=== PATIENT | female | born 1955 | race Caucasian/White ===

== ENCOUNTER 2021-11-10 07:13 | Emergency (ER) | payer OTHER, SELFPAY ==
--- NOTE | ~2021-11-10 | XR_ITS ---
EXAMINATION: XR WRIST, RIGHT CLINICAL INFORMATION: Fall. COMPARISON: None TECHNIQUE: PA, lateral, and oblique views of the right wrist. FINDINGS: There is a nondisplaced fracture distal radius with mild dorsal angulation of distal fragment. No additional fracture seen. There is mild soft tissue swelling around the wrist. XR/XR wrist RT min 3V IMPRESSION: Nondisplaced fracture distal radius with mild dorsal angulation and mild soft tissue swelling
[2021-11-10 07:20] VITALS: BP 123/64; PULSE 76; RESP 18; TEMP 36.7; O2SAT 98; BMI 29.1
--- NOTE | 2021-11-10 08:24 | ED.EXTPRO ---
HPI - Extremity Problem General Chief complaint: Extremity Injury, Upper Stated complaint: fall r arm inj Time Seen by Provider: 11/10/21 07:30 Source: patient Mode of arrival: ambulatory Limitations: no limitations History of Present Illness HPI Narrative: slipped getting out of bed - injury to chin on floor and R wrist - CARLEEN ESTRADA Complaint: joint swelling and joint pain Onset (ago): hour(s) (630am) Pain Consistency: constant Location: right and upper extremity (wrist) Quality: aching and dull Radiation: none Relieving factors: immobilization Exacerbating factors: range of motion and palpation Associated symptoms: other (small cut on chin, no LOC, no headache, bite feels normal no other injuries) Context: other (slipped on floor, no oral AC therapy) Related Data Previous Rx's Medication Instructions Recorded hydrocodone 5 mg-acetaminophen 325 1 tab PO Q6H PRN #12 tab 11/10/21 mg tablet ibuprofen 600 mg tablet 600 mg PO Q6H PRN #30 tab 11/10/21 ondansetron 4 mg disintegrating 4 mg PO Q8H PRN #20 tab 11/10/21 tablet Allergies Allergy/AdvReac Type Severity Reaction Status Date / Time No Known Allergies Allergy Unknown Unverified 03/29/20 14:40 Review of Systems Review of Systems: Constitutional : No Fever, No Chills ENT/Mouth : No Ear Pain, No Hoarseness, No sore throat Eyes: No Eye Pain, No Swelling, No Redness, No Foreign Body Cardiovascular : No Chest Pain, No SOB Respiratory : No Cough, No Dyspnea Gastrointestinal : No Nausea, No Vomiting, No Diarrhea, No abdominal Pain Genitourinary : No Dysuria, No Hematuria Musculoskeletal : positive joint pain, No Myalgias, pos Joint Swelling Skin : pos Skin lacerations, No rash Neuro : No Weakness, No Numbness, No Loss of Consciousness, No Dizziness, No Headache [facility] Past Medical History Attestation statement: The following information was validated with the patient. Medical History HLD (hyperlipidemia) HTN (hypertension) Social History Social History (Updated 11/10/21 @ 09:02 by Namita Peck DO) Patient Tobacco Use Status: Never used Tobacco Advance Directives: Yes Advance Directives Information Provided: Yes Advance Directives on File: No Physical Exam Vital Signs: Vital Signs: Last Vital Signs Temp 98.0 F 11/10/21 07:20 Pulse 76 11/10/21 07:20 Resp 18 11/10/21 07:20 BP 123/64 11/10/21 07:20 Pulse Ox 98 11/10/21 07:20 BMI result Body Mass Index 29.1 Appearance: Alert. Oriented X3. No acute distress. Eyes: Pupils equal, round and reactive to light. ENT: Pharynx normal. superficial 1cm very mild chin laceration - areas well approximated Neck: Normal inspection. Neck supple. CVS: Normal heart rate and rhythm. Pulses normal. Respiratory: No respiratory distress. Breath sounds normal. Abdomen: Soft and nontender. Skin: Skin warm and dry. Normal skin color. Normal skin turgor. Extremities: No lower extremity edema. R wrist swelling noted small ecchymosis no large deformity 2+ radial pulse, BCR in all digits, no elbow pain, SILT intact Neuro: Oriented X 3. No motor deficit. No sensory deficit. MDM - Extremity (Nontraumatic) MDM Narrative Medical decision making narrative: 66 yo female with mechanical fall at home no LOC, no DOAC here with R wrist injury - fracture on xray NV intact will need splint, has chin laceration no LOC GCS 15 doubt ICH - repair of chin laceration Procedures Laceration Laceration 1: Site: face (chin) Size (cm): 1 Description: linear Depth: simple, single layer Pre-repair: wound explored and irrigated extensively (cleaned) Skin layer closed with: other (dermabond) Orthopedic Splinting/Casting Injury #1: Side: right Upper Extremity Injury Location: wrist Upper Extremity Immobilizer: thumb spica Additional Comments: NV intact post splint Discharge Plan Discharge Clinical Impression: Distal radius fracture Qualifiers: Encounter type: initial encounter Fracture type: closed Fracture morphology: other fracture Laterality: right Qualified Code(s): S52.591A - Other fractures of lower end of right radius, initial encounter for closed fracture Chin laceration Qualifiers: Encounter type: initial encounter Qualified Code(s): S01.81XA - Laceration without foreign body of other part of head, initial encounter Patient Disposition: Home, Self-Care Instructions: Laceration (ED), Wrist Fracture in Adults (ED) Additional Instructions: return to ED for any worsening symptoms or concerns splint until seen by orthopedics dermabond will fall off in 5 to 7 days it is okay to shower Prescriptions: New hydrocodone-acetaminophen 5-325 mg tablet 1 tab PO Q6H PRN (Reason: pain) Qty: 12 0RF ibuprofen 600 mg tablet 600 mg PO Q6H PRN (Reason: pain) Qty: 30 0RF ondansetron 4 mg tablet,disintegrating 4 mg PO Q8H PRN (Reason: nausea and vomiting) Qty: 20 0RF Referrals: Renetta Rodriguez PA-C [Physician Policewoman] - 1 week Stand Alone Forms: Work/School Release Interventions: ED Discharge Assessment Last Done: 11/10/21 09:07 Discharge Date/Time: 11/10/21 09:08
== END 2021-11-10 09:08 | disposition home or self-care (01) ==
PROVIDERS: Emergency Provider Emergency Medicine; PCP Pediatrics
DX: S52.591A Other fractures of lower end of right radius, initial encounter for closed fracture (principal); S01.81XA Laceration without foreign body of other part of head, initial encounter; I10 Essential (primary) hypertension; W06.XXXA Fall from bed, initial encounter; Y93.9 Activity, unspecified; Y92.003 Bedroom of unspecified non-institutional (private) residence as the place of occurrence of the external cause; Y99.9 Unspecified external cause status
CPT/HCPCS: 12011; 29125; 73110; 99283; 99284

== ENCOUNTER → 2021-11-13 10:34 | Outpatient (BNVA) | payer OTHER, SELFPAY | PROVIDERS: PCP Pediatrics; Visit Provider Physician Assistant | DX: S52.501A Unspecified fracture of the lower end of right radius, initial encounter for closed fracture (principal); W18.09XA Striking against other object with subsequent fall, initial encounter; Y93.9 Activity, unspecified; Y92.9 Unspecified place or not applicable; Y99.9 Unspecified external cause status | CPT/HCPCS: 29125 ==

== ENCOUNTER 2021-11-14 07:21 | Day surgery (SDC) | payer OTHER, SELFPAY ==
--- NOTE | 2021-11-13 14:43 | P.CONAN_ITS ---
Documented by User: Kasia Schumacher NP 11/13/21 14:44 HPI - Anesthesia Eval Consult details Narrative: 66yo F for Right Radius Distal Fracture ORIF [facility] Active Problems Active Problems: All Active Problems (Updated 11/13/21 @ 11:37 by Renetta Rodriguez PA-C) Distal radius fracture, right (Acute) Past Medical History Medical History (Updated 11/14/21 @ 07:36 by Alexa Leyva RN) HLD (hyperlipidemia) HTN (hypertension) Hx of pheochromocytoma Social History Social History (Updated 11/13/21 @ 10:50 by EUGENIA Ramos) Patient Tobacco Use Status: Never used Tobacco Use of substances other than those prescribed or required for medical reasons: No Are you DNR?: No Advance Directives: No Advance Directives Information Provided: Yes Recently lost weight without trying: No Current occupational status: employed 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, 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 Meds Allergies Allergy/AdvReac Type Severity Reaction Status Date / Time No Known Allergies Allergy Unknown Unverified 11/13/21 10:48 Home Medications Medication Instructions Recorded Confirmed Last Taken Type chlorthalidone 25 mg tablet 12.5 mg PO QAM 11/13/21 Unknown History lisinopril 10 mg tablet 10 mg PO DAILY 11/13/21 11/14/21 History rosuvastatin 10 mg tablet 10 mg PO BEDTIME 11/13/21 Unknown History Exam Exam Date and Time: November 13, 2021 144 Assessment and Plan Assessment Anesthesia Assessment: Chart Reviewed Documented by User: Lopez Garg MD 11/14/21 10:32 [facility] Past Medical History Medical History (Updated 11/14/21 @ 07:36 by Alexa Leyva RN) HLD (hyperlipidemia) HTN (hypertension) Hx of pheochromocytoma Family History Family history of problems with anesthesia: No Surgical History History of Problems with Anesthesia: No Social History Social History (Updated 11/13/21 @ 10:50 by EUGENIA Ramos) Patient Tobacco Use Status: Never used Tobacco Use of substances other than those prescribed or required for medical reasons: No Are you DNR?: No Advance Directives: No Advance Directives Information Provided: Yes Recently lost weight without trying: No Current occupational status: employed 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, 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 Meds Allergies Allergy/AdvReac Type Severity Reaction Status Date / Time No Known Allergies Allergy Unknown Unverified 11/13/21 10:48 Home Medications Medication Instructions Recorded Confirmed Last Taken Type chlorthalidone 25 mg tablet 12.5 mg PO QAM 11/13/21 Unknown History lisinopril 10 mg tablet 10 mg PO DAILY 11/13/21 11/14/21 History rosuvastatin 10 mg tablet 10 mg PO BEDTIME 11/13/21 Unknown History Exam Airway Mallampati Class: III (limited mouth opening due to jaw injury) TM Dist: >3cm Neck ROM: Full Loose/Missing/Broken Teeth: Yes Assessment and Plan Assessment Anesthesia Assessment: Anesthesia Plan Discussed Final Anesthetic Review Family History of Problems with Anesthesia: No History of Problems with Anesthesia: No NPO: Yes ASA Class: II Final Preanesthetic Review: No Changes in Pt Med Stat, Meds/Allgs Chart Reviewed, Consent Obtained/Reviewed and Anes Risks/Benef Reviewed Patient Risk: Low Procedure Risk: Low Anesthetic Plan Anesthetic Plan: GA and Regional Block Disposition: Standard PACU
[2021-11-14] VITALS (7 sets, daily range): BP systolic 103–146; BP diastolic 34–80; PULSE 89–101; RESP 16–18; TEMP 36.1–37.3; O2SAT 93–98; BMI 29.1
--- NOTE | ~2021-11-14 | FL_ITS ---
EXAMINATION: XR FLUOROSCOPY WITH IMAGES CLINICAL INFORMATION: Right distal radius fracture, status post ORIF. COMPARISON: 11/10/2021 right wrist radiographs. TECHNIQUE: Fluoroscopy time: 69 seconds DAP: [id number] mGycm2 Images: 4 FL/FL guidance in OR FINDINGS/IMPRESSION: Status post distal radius ORIF showing good anatomic alignment and no evidence for hardware malfunction. The distal ulna is intact. There is mild soft tissue swelling. Please refer to the procedure report for more detailed findings.
[2021-11-14] MEDS: Lactated Ringers 1,000 ML 100 ML IVCONT (08:04)
--- NOTE | 2021-11-14 08:44 | MHC.SHP ---
Pre-Procedural Eval Section A Date of Service: 11/14/21 The patient is an INPATIENT: No Changes since office visit: No Cold of Flu in the past 2 weeks, No New Medical Problems, No Changes in Medication and No Patient answered all questions The History & Physical has been completed within 30 days and I have reviewed it.: Yes Section B Chief Complaint: Right distal radius fracture Allergies: Allergies Allergy/AdvReac Type Severity Reaction Status Date / Time No Known Allergies Allergy Unknown Unverified 11/13/21 10:48 Plan I have reviewed the history and physical and performed a pertinent physical examination on my patient. No changes have occurred unless specified.
--- NOTE | 2021-11-14 08:44 | W.PM.OPN ---
Operative Note Operative Note Date of Service: 11/14/21 Narrative: Operative Note Narrative: Preop diagnosis: 1. Right Distal radius fracture Postop diagnosis: Same Procedure: 1. Right Distal radius fracture open reduction internal fixation Surgeon: Lidia Heredia MD Anesthesia: Mac plus regional block Findings: Right extra-articular distal radius fracture Implants: A 3 hole Accu Med volar locking plate, with 4x2.3 mm locking pegs/screws, and 3 3.5 mm cortical screws Tourniquet time: 70 minutes EBL: 5.0 ml Specimen: None Drains: None Complications: None Disposition: Brought to the recovery room in stable condition Plan: the glove on the tip of my right thumb was noted to have torn during the procedure. For this reason I am sending her out on oral Keflex and bring her in for wound check next week. Follow-up next week for wound check, and then at 2 weeks postop to for postop radiographs and suture removal. The patient will be placed in either a short-arm cast or a volar wrist splint. Encouraged no lifting of anything heavier than a cell phone. Please encourage active and passive range of motion of the digits. Follow-up at 4-5 weeks postop for repeat radiographs. Indications: The patient is a 66 year old woman with a right distal radius fracture . The risks and benefits of operative treatment, including but not limited to risk of damage to blood vessels, nerves, tendons, infection, recurrence, persistent pain or numbness, incomplete resolution of preoperative symptoms, or need for further surgery were discussed with the patient and they wished to proceed with surgery. Procedure: Once consent was obtained patient was brought back to the operating suite and placed in the operating table in a supine position. A regional block was performed by the anesthesia team. Perioperative antibiotics and anesthesia was administered by the anesthesia team. A tourniquet was applied to the proximal aspect of the right upper extremity and the limb was prepped and draped in a standard surgical fashion. The limb was elevated exsanguinated with Esmarch bandage and the tourniquet inflated to 250 mm of mercury for a total tourniquet time of 70 minutes. The FluoroScan was used throughout the case to assess our reduction, and facilitate implant placement. A gentle closed reduction was 1st performed on the patient's right distal radius fracture. Was assessed radiographically before proceeding with the reduction internal fixation. I then made an 8 cm longitudinal incision over the distal aspect of the flexor carpi radialis tendon. The incision was made through the skin to the subcutaneous tissue using a 15. Blade. Then carefully dissected down to flexor carpi radialis tendon she tenotomy scissors. The FCR tendon sheath was then incised longitudinally using tenotomy scissors under direct visualization. The FCR tendon was then retracted ulnarly. I then made a longitudinal incision in the volar forearm fascia through the floor of FCR tendon sheath using tenotomy scissors under direct visualization. I identified the interval between the radial artery and the flexor tendons. This interval was developed further with my index finger, releasing some of the muscular fibers of the flexor pollicis longus. A dull weatlander retractor was then placed. I then created an ulnarly based flap of the pronator quadratus by releasing the radial and distal edges using a 15. Blade. A [place] Leon elevator was used to elevate the pronator quadratus from the volar surface of the distal radius. This then revealed to us our distal radius fracture. An open reduction was then performed on our distal radius fracture. I then placed a short narrow 3 hole Accu Med volar locking plate on the volar surface of the distal radius. I placed a single K-wire through the distal aspect of the plate and into the distal radius. This was assessed using fluoroscopic images. I was satisfied with the placement of our plate. I then placed 4x 2.3 mm locking screws/pegs in the distal aspect of the plate and distal radius by 1st drilling bicortically with a 1.8 mm drill bit, measuring with a depth gauge, and placing the appropriate length locking screws/pegs. The placement of our plate and screws was then assessed again using fluoroscopic images. The once satisfied with the placement of the volar locking plate and screws on the distal aspect of the distal radius, the plate was then reduced to the shaft of the radius. I then placed 3 3.5 mm cortical screws to the proximal aspect of the plate and into the shaft of the radius. This was done by 1st drilling bicortically with a 2.8 mm drill bit, measuring with a depth gauge, and placing the appropriate length screw. When fluoroscopic images were again taken, I noted that the distal aspect of the plate was elevated off of the distal volar portion of the radius by few mm. I removed the 3 cortical screws and 3 of the distal locking pegs, reduced the plate back down to the distal fragment and tightened 2 distal Locking pegs. I noted that without much force the radial aspect of the plate tended to again lift off of the distal radius. I made the decision to remove the 2 remaining screws, and reposition the plate. The plate was repositioned slightly ulnarly. I placed a single K-wire through the distal aspect of the plate and into the distal radius.? This was assessed using fluoroscopic images.? I was satisfied with the placement of our plate.? I then placed 4x? ?2.3 mm locking screws/pegs in the distal aspect of the plate and distal radius by 1st drilling bicortically with a 1.8 mm drill bit, measuring with a depth gauge, and placing the appropriate length locking screws/pegs.? The placement of our plate and screws was then assessed again using fluoroscopic images.? The once satisfied with the placement of the volar locking plate and screws on the distal aspect of the distal radius, the plate was then reduced to the shaft of the radius.? I then placed 3? ?3.5 mm cortical screws to the proximal aspect of the plate and into the shaft of the radius.? Interestingly, the 2 more distal holes that were already drilled for the 3.5 mm screws were utilized as they lined up perfectly with the plate. We did drill a new hole for the most proximal screw hole. Fluoroscopic images were then obtained. I was very satisfied with our reduction, the position of the plate and position of all implants. During placement of the 3.5 mm cortical screws it was appreciated that the glove at the tip of my right thumb had torn. The glove was replaced and we also replaced the drill that I was using. The wound was copiously irrigated with normal saline.. Final radiographs were then obtained. The DRUJ was assessed and found to be stable on exam. I was satisfied with our reduction and placement of all implants. At this point the wound was copiously irrigated with normal saline. The pronator quadratus was reduced back over the volar locking plate using some 3-0 Vicryl suture material. The tourniquet was then deflated and hemostasis was obtained with a brief period of local pressure and bipolar monopolar electrocautery. The subcutaneous layer was then reapproximated using some 4-0 Vicryl suture, and the skin edges were reapproximated using some 5 0 Prolene suture. The wound was then infiltrated with some 0.5% plain Marcaine for postop pain control. A sterile dressing and a short dorsal splint allowing for active flexion and extension of the digits was applied. The patient appears to have tolerated the procedure well and with no complications. All digits were well vascularized conclusion of the case.
== END 2021-11-14 12:39 ==
PROVIDERS: PCP Pediatrics; Visit Provider Orthopaedic Surgery
PROC: (CPT 25607; principal; 2021-11-14 09:00)
DX: S52.551A Other extraarticular fracture of lower end of right radius, initial encounter for closed fracture (principal); W01.0XXA Fall on same level from slipping, tripping and stumbling without subsequent striking against object, initial encounter; Y93.01 Activity, walking, marching and hiking; Y92.9 Unspecified place or not applicable; Y99.8 Other external cause status; E78.5 Hyperlipidemia, unspecified; I10 Essential (primary) hypertension; Z79.899 Other long term (current) drug therapy; Z98.890 Other specified postprocedural states; Z86.03 Personal history of neoplasm of uncertain behavior
CPT/HCPCS: 25607; C1713; C1769; J0690; J1100; J2250; J2370; J2405; J2795; J3010

== ENCOUNTER → 2021-11-20 09:17 | Outpatient (BNVA) | payer OTHER, SELFPAY | PROVIDERS: PCP Pediatrics; Visit Provider Orthopaedic Surgery | DX: Z13.89 Encounter for screening for other disorder (principal) ==

== ENCOUNTER 2021-11-27 08:22 | Outpatient (REF) | payer OTHER, SELFPAY ==
--- NOTE | ~2021-11-27 | XR_ITS ---
EXAMINATION: XR WRIST, RIGHT CLINICAL INFORMATION: Fracture COMPARISON: Previous x-ray November 10 and 2021 TECHNIQUE: PA, lateral, and oblique views of the right wrist. FINDINGS: There is ORIF of the right distal radius fracture with plate and screws. This appears unchanged. Fracture line is still seen. No other fracture is seen. The carpal bones are normal. There is overlying soft tissue swelling. XR/XR wrist RT min 3V IMPRESSION: ORIF of right distal radius fracture.
== END 2021-11-27 08:23 | disposition home or self-care (01) ==
LOC: HO.HOSX 08:22
PROVIDERS: Visit Provider Orthopaedic Surgery
DX: M25.531 Pain in right wrist (principal)
CPT/HCPCS: 73110

== ENCOUNTER 2021-12-25 08:22 | Outpatient (REF) | payer OTHER, SELFPAY ==
--- NOTE | ~2021-12-25 | XR_ITS ---
EXAMINATION: XR WRIST, RIGHT CLINICAL INFORMATION: Reduction internal fixation distal radial fracture. Follow-up. COMPARISON: Radiographs right wrist 11/27/2021, 11/10/2021 TECHNIQUE: Right wrist is imaged in 3 views. FINDINGS: Distal radial fracture is reduced with volar side plate and multiple screws. Hardware is intact. Fracture fragments are in near-anatomic alignment. Fracture line is still visible. No destructive process or osteolysis. No dislocation. XR/XR wrist RT min 3V IMPRESSION: -Status post reduction internal fixation distal radial fracture. Hardware intact. -Fracture line still visible. No osteolysis or destructive process.
== END 2021-12-25 08:23 | disposition home or self-care (01) ==
LOC: HO.HOSX 08:22
PROVIDERS: Visit Provider Orthopaedic Surgery
DX: M25.531 Pain in right wrist (principal)
CPT/HCPCS: 73110

== ENCOUNTER 2023-01-28 08:18 | Outpatient (AMB) | payer OTHER, SELFPAY ==
--- NOTE | 2023-01-28 08:32 | MHC.OFFWIV ---
Intake Vital Signs 01/28/23 08:35 BP 118/68 Blood Pressure Location Lt brachial Position Sitting Pulse 105 H Pulse Source Pulse Oximeter Temp 98.4 F Temp Source Temporal Artery Scan Pulse Oximetry (%) 95 Oxygen Delivery Method Room Air Intake Visit Reasons: EP UTI? (ursula) Intake Note: Patient here for possible UTI, she did have one last one and is unsure if it ever truly went away. Frequent urination, appears cloudy. denies burning when urinating. Patient Tobacco Use Status: Never used Tobacco Allergies No Known Allergies Allergy (Unknown, Verified 01/28/23 08:34) Do you need a note to return to daycare/school/sports/work: No HPI EP UTI? (ursula) HPI Details 67-year-old female patient presents today with symptoms of urinary tract infection. She had similar symptoms about 1 month ago, and was seen in the clinic on 12/31 for UTI. She was started on Bactrim. She feels symptoms were improved for a couple of weeks, and then started to recur. She reports urinary frequency, urgency, cloudiness of the urine. She denies any fever, chills, or back pain. 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 Review of Systems Const All systems reviewed & are unremarkable except as noted in HPI and below Physical Exam Vital Signs: Last Vital Signs Temp 98.4 F 01/28/23 08:35 Pulse 105 H 01/28/23 08:35 BP 118/68 01/28/23 08:35 Pulse Ox 95 01/28/23 08:35 Oxygen Delivery Method Room Air 01/28/23 08:35 Const General: cooperative, healthy appearing, comfortable and no acute distress Resp Effort & Inspection: normal respiratory effort and able to speak in complete sentences Auscultation: clear to auscultation bilaterally Cardio Jugular venous distension: no JVD Palpation: normal PMI Rate: regular rate Rhythm: regular rhythm General: Yes bladder normal to palpation and Yes no CVA tenderness Bimanual exam- vagina & uterus: bladder normal to palpation Back/Spine/Pelvis Back: no CVA tenderness Skin General skin exam: no rashes or lesions noted Extrem General: Yes no clubbing, cyanosis or edema Psych Appearance: grossly normal Mental Status: mental status grossly normal Speech and movement: Normal speech and movement present Results AMB Urinalysis, Automated UA Leukoctes 500 Lana/uL Last Edit by NOEMI Cortes on 01/28/23 08:45 UA Nitrite Negative Last Edit by Matthias Donaldson CCM on 01/28/23 08:45 UA Urobilinogen 0.2 mg/dL Last Edit by Matthias Donaldson [facility] on 01/28/23 08:45 UA Protein 30 mg/dL Last Edit by Matthias Donaldson [facility] on 01/28/23 08:45 UA pH Last Edit by Matthias Donaldson [facility] on 01/28/23 08:45 UA Blood 5.5 Go/uL Last Edit by Matthias Donaldson CCM on 01/28/23 08:45 UA Specific [place] 1.015 Last Edit by Matthias Donaldson [facility] on 01/28/23 08:45 UA Ketone Negative Last Edit by Matthias Donaldson CCM on 01/28/23 08:45 UA Bilirubin 0 mg/dL Last Edit by Matthias Donaldson [facility] on 01/28/23 08:45 UA Glucose 0 mg/dL Last Edit by Matthias Donaldson [facility] on 01/28/23 08:45 Assessment & Plan Assessment & Plan (1) Urinary tract infection: Code(s): N39.0 - Urinary tract infection, site not specified Qualifiers: Urinary tract infection type: acute cystitis Hematuria presence: with hematuria Qualified Code(s): N30.01 - Acute cystitis with hematuria Plan: Recurrent UTI following treatment about 1 month ago. Will start patient on nitrofurantoin and send urine culture. Will also refill patient's pyridium per her request. Recommended to increase water intake and probiotic/live culture intake Advised to return to the clinic if she does not improve with treatment, or if symptoms such as fever, chills, flank pain developed. She verbalizes understanding and agrees to plan. Orders: Orders AMB Urinalysis Automated Today Z13.9 - Encounter for screening, unspecified Urine Culture Today N39.0 - Urinary tract infection, site not specified Medications: New nitrofurantoin macrocrystal must administer with a meal/food 100 mg PO BID 10 caps 0RF 5 days N39.0 - Urinary tract infection, site not specified Coding Level of Care Code Est Pt Level 3 (00934) Diagnoses Urinary tract infection N30.01 Urinary tract infection type: acute cystitis Hematuria presence: with hematuria
[2023-01-28 08:35] VITALS: BP 118/68; PULSE 105; TEMP 36.9; O2SAT 95
== END 2023-01-28 08:57 | disposition home or self-care (01) ==
PROVIDERS: PCP Pediatrics; Visit Provider Nurse Practitioner Family
DX: N30.01 Acute cystitis with hematuria (principal); R35.0 Frequency of micturition
CPT/HCPCS: 81003; 99213

== ENCOUNTER 2023-01-28 14:04 | Outpatient (REF) | payer OTHER, SELFPAY | END 2023-01-28 14:05 | disposition home or self-care (01) | LOC: HO.HMGCLNP 14:04 | PROVIDERS: Visit Provider Nurse Practitioner Family | DX: N39.0 Urinary tract infection, site not specified (principal) | CPT/HCPCS: 87086; 87088; 87186 ==

== ENCOUNTER 2023-05-07 14:26 | Outpatient (REF) | payer OTHER, SELFPAY ==
--- NOTE | ~2023-05-07 | US_ITS ---
EXAMINATION: US RETROPERITONEAL COMPLETE (RENAL) CLINICAL INFORMATION: Atrophy of kidney. COMPARISON: CT abdomen and pelvis 10/15/2021. Renal ultrasound 04/21/2013 and 01/04/2008. TECHNIQUE: Real-time imaging of the kidneys and bladder. FINDINGS: RIGHT KIDNEY: 12.6 x 7.4 x 8.7 cm (SAG x AP x TRV). The kidney is normal in size, contour, and echogenicity. Renal cortical thickness is normal. No renal calculi or focal parenchymal lesions. There is marked hydronephrosis. LEFT KIDNEY: 12.6 x 7.0 x 4.7 cm (SAG x AP x TRV). The kidney is normal in size, contour, and echogenicity. Renal cortical thickness is normal. No focal parenchymal lesions. At the ureteropelvic junction, a 1.1 cm calculus is seen. There is moderate hydronephrosis. BLADDER: Well distended and normal. Left ureteral jet is demonstrated; right is not. Prevoid bladder volume is 269 mL. Postvoid bladder volume is 10 mL. US/US retroperitoneal comp IMPRESSION: 1. There is marked right hydronephrosis. No right ureteric jet is seen. 2. There is moderate left hydronephrosis. A 1.1 cm calculus is seen at the left ureteropelvic junction.
== END 2023-05-07 14:27 | disposition home or self-care (01) ==
LOC: HO.US 14:26
PROVIDERS: Visit Provider Physician Assistant Medical
DX: Q62.11 Congenital occlusion of ureteropelvic junction (principal); N26.1 Atrophy of kidney (terminal)
CPT/HCPCS: 76770

== ENCOUNTER 2023-06-19 15:32 | Inpatient (IN) | payer OTHER, SELFPAY ==
[2023-06-19] VITALS (10 sets, daily range): BP systolic 94–137; BP diastolic 51–75; PULSE 92–144; RESP 16–22; TEMP 36.9–38.8; O2SAT 91–95; BMI 32.8
--- NOTE | ~2023-06-19 | XR_ITS ---
EXAMINATION: XR CHEST CLINICAL INFORMATION: Fever COMPARISON: None available. TECHNIQUE: Frontal view of the chest was obtained. FINDINGS: No significant abnormality is noted involving the heart, lungs, mediastinum, bony thorax or soft tissues. XR/XR chest 1V IMPRESSION: Unremarkable examination.
--- NOTE | ~2023-06-19 | CT_ITS ---
EXAMINATION: CT HEAD WITHOUT CONTRAST (STROKE PROTOCOL) CLINICAL INFORMATION: Expressive aphasia. COMPARISON: No relevant prior imaging. TECHNIQUE: Contiguous axial imaging was performed from the skull base to vertex without intravenous administration of contrast. This CT examination was performed using dose optimization techniques as appropriate, variously including the following: *Automated exposure control *Adjustment of mA and/or kV according to patient size (this includes techniques or standardized protocols for targeted exams where dose is matched to indication/reason for exam; i.e. extremities or head) *Use of iterative reconstruction technique DLP: 593 mGy-cm FINDINGS: There is no acute intracranial hemorrhage or abnormal extra-axial collection. No intracranial mass effect or midline shift. Lateral and third ventricles are normal. No hydrocephalus. English-white matter differentiation is preserved and there is no evidence of acute territorial infarct. The calvarium and skull base are intact. Mastoid air cells and middle ear cavities are well aerated. No active paranasal sinus disease. Globes and orbits are grossly symmetric. CT/CT head for stroke IMPRESSION: Normal CT scan of the head.
--- NOTE | ~2023-06-19 | CT_ITS ---
EXAMINATION: CT ABDOMEN AND PELVIS WITHOUT CONTRAST CLINICAL INFORMATION: Stent removal yesterday COMPARISON: Previous renal ultrasound April 2023 TECHNIQUE: Multidetector volumetric imaging was performed from the superior aspect of the liver through the pubic symphysis. Sagittal and coronal reformatted images were obtained on the technologist's workstation. This CT examination was performed using dose optimization techniques as appropriate, variously including the following: *Automated exposure control *Adjustment of mA and/or kV according to patient size (this includes techniques or standardized protocols for targeted exams where dose is matched to indication/reason for exam; i.e. extremities or head) *Use of iterative reconstruction technique DLP: 896 mGy-cm FINDINGS: Exam is limited due to motion artifact. LUNG BASES: The visualized lung bases are unremarkable. LIVER, GALLBLADDER, AND BILIARY TREE: The liver is normal in size, shape, and attenuation. No focal hepatic lesion or biliary ductal dilatation is present. The gallbladder is unremarkable with no evidence of radiopaque gallstones, gallbladder wall thickening, or obvious pericholecystic inflammatory changes. PANCREAS: Unremarkable. SPLEEN: Unremarkable. ADRENAL GLANDS: The left adrenal gland has been removed. Right adrenal gland is normal. KIDNEYS AND URETERS: There is severe right hydronephrosis. There is marked right renal cortical thinning suggestive of long-standing obstruction. This is similar to previous ultrasound. There is moderate left hydronephrosis. The left ureter does not appear dilated. There is a small amount of fat stranding surrounding the left renal pelvis and ureter. No stone is seen. BLADDER: Not optimally distended. GASTROINTESTINAL TRACT: Diverticulosis of the colon. The small and large bowel are otherwise unremarkable. The appendix is unremarkable. ABDOMINAL WALL: No significant hernia is appreciated. LYMPH NODES: Normal. VASCULAR: Atherosclerotic disease. No aneurysm. PELVIC VISCERA: Unremarkable. OSSEOUS STRUCTURES: Degenerative changes of the spine. CT/CT abdomen pelvis wo IV con IMPRESSION: Limited exam due to motion artifact. Severe right hydronephrosis and right renal cortical thinning suggestive of long-standing obstruction. This is similar to April 2023 ultrasound. Moderate left hydronephrosis. There is fat stranding seen surrounding the left renal pelvis and ureter. No stone seen. Severe diverticulosis of the colon. Fleischner guidelines were followed.
--- NOTE | ~2023-06-19 | CT_ITS ---
EXAMINATION: CT angio head neck stroke CLINICAL INFORMATION: Expressive aphasia. COMPARISON: CT scan of the head 06/19/2023. TECHNIQUE: Rail Signal Mechanic images were obtained. A CT angiogram of the head and neck was performed in the arterial phase after the intravenous administration of 50 mL Omnipaque 350. Pre and delayed postcontrast images of the head were also obtained. 3D images were processed on an independent workstation under concurrent supervision. Arterial stenoses are measured in accordance with NASCET criteria or similar method if applicable. This CT examination was performed using dose optimization techniques as appropriate, including one or more of the following: Automated exposure control, iterative reconstruction, and adjustment of technique factors (mA and/or kVp) according to patient size (this includes techniques or standardized protocols for targeted exams where dose is matched to indication/reason for exam). Fleischner Society criteria for the followup of incidental pulmonary nodules was implemented if appropriate. Total exam dose-length product 1459 mGy-cm FINDINGS: Head: Delayed postcontrast images reveal no abnormal intracranial mass or enhancement. There is no intracranial mass effect or midline shift. Lateral and third ventricles are normal. No hydrocephalus. English-white matter differentiation is preserved and there is no evidence of acute territorial infarct. The calvarium and skull base are intact. Mastoid air cells and middle ear cavities are well aerated. No active paranasal sinus disease. Of note there is an old healed fracture of the right mandibular condyle which is anteriorly subluxed. CT angiogram neck: Patient motion degrades image quality on this component of the examination. The diagnostic accuracy is therefore limited. Scattered atheromatous calcification involves the aortic arch apex. Origins of the major aortic branches are patent. Common carotid arteries are patent. Partially calcified atheromatous plaque involves both carotid bifurcations. No stenosis of the extracranial internal carotid arteries. The cervical segments of the vertebral arteries are patent. CT angiogram head: There is a shallow 1.4 mm contour abnormality at the origin of the left posterior communicating artery that may represent a small aneurysm or vascular infundibulum. This finding is best visualized on sagittal MIP image 61 of 146 series 9. Intracranial internal carotid arteries are otherwise normal. The intradural vertebral artery segments and basilar artery are normal. Anterior, middle, and posterior cerebral artery complexes are normal. No intracranial large vessel occlusion. The timing of the contrast injection provides adequate opacification of the dural venous sinuses which are patent. Other: Soft tissues of the neck including the thyroid gland are normal. No pathologically enlarged cervical lymph nodes. Lung apices are clear. CT/CT angio head neck stroke IMPRESSION: Patient motion degrades image quality on this component of the examination. The diagnostic accuracy is therefore limited. Partially calcified atheromatous plaque involves both carotid bifurcations. No stenosis of the cervical carotid or vertebral arteries. No intracranial large vessel occlusion. There is a shallow 1.4 mm contour abnormality at the origin of the left posterior communicating artery that may represent a small aneurysm or vascular infundibulum. No evidence of acute territorial infarct or hemorrhage. No abnormal intracranial mass or enhancement. This critical result was discussed with Sera Smith at 4:23 PM on 06/19/2023 and it was ascertained that the content and urgency of the report was understood at the time of direct communication.
--- NOTE | 2023-06-19 15:50 | ECG_ITS ---
Test Reason : STROKE SYMPTOMS Blood Pressure : / mmHG Vent. Rate : 126 BPM Atrial Rate : 126 BPM P-R Int : 162 ms QRS Dur : 078 ms QT Int : 304 ms P-R-T Axes : 025 041 014 degrees QTc Int : 440 ms Sinus tachycardia Cannot rule out Inferior infarct , age undetermined Abnormal ECG When compared with ECG of 18-OCT-2006 14:53, T wave inversion now evident in Inferior leads Referred By: Quintin Cabezas Electronically Signed By:ELVIN MERCADO
--- NOTE | 2023-06-19 15:51 | ED.GENADULT ---
HPI - General Adult General Chief complaint: Stroke Stated complaint: unstable Time Seen by Provider: 06/19/23 15:56 History of Present Illness HPI narrative: 67 y/o F patient; PMH HLD, left ureteral stent removal 06/18/2023; [facility] report of [facility]asia and ataxia that began at approx 3pm. The patient left work at 3pm and co-workers deny noticing any abnormalities. [facility] the patient was noticed to have difficulty with speech and difficulty with ambulation. The patient herself reports she feels unwell but cannot provide further details. She otherwise denies: pain, fever or chills, nausea/vomiting, abdominal pain, chest pain, SOB, cough/congestion. Of note the patient was seen immediately by triage provider. She was noticed to have an appropriate glucose. She had tachycardia and fever to 100.9F. She was activated as a code stroke due to her ataxia and reported aphasia. Patient's son is at bedside. Urologist: Dr. Martell ([place]) Related Data Home Medications Medication Instructions Recorded Confirmed chlorthalidone 25 mg tablet 12.5 mg PO QAM 11/13/21 12/31/22 lisinopril 10 mg tablet 10 mg PO DAILY 11/13/21 12/31/22 rosuvastatin 10 mg tablet 10 mg PO BEDTIME 11/13/21 12/31/22 Previous Rx's Medication Instructions Recorded nitrofurantoin macrocrystal 100 mg 100 mg PO BID 5 days #10 caps 01/28/23 capsule Allergies Allergy/AdvReac Type Severity Reaction Status Date / Time No Known Allergies Allergy Unknown Verified 01/28/23 08:34 Review of Systems Review of Systems: Yes all other systems are reviewed and are negative Neurologic: Denies Sensory deficit (Neuro) [facility] Past Medical History Attestation statement: The following information was validated with the patient. 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 Const General: cooperative; No diaphoretic Orientation/consciousness: patient oriented x3 HENMT Head: Yes normal to inspection and Yes atraumatic Eyes General: appearance normal, both eyes and all related structures Pupils: Equal, round and reactive pupils present EOM: EOMs intact bilaterally Neck Neck: Yes normal visual inspection, Yes full ROM and Yes supple Chest Chest palpation & inspection: normal inspection of the chest and normal palpation of entire chest wall Resp Effort & Inspection: normal respiratory effort, able to speak in complete sentences, no cough and no respiratory distress Auscultation: clear to auscultation bilaterally Cardio Rate: tachycardic Rhythm: regular rhythm Peripheral pulses: Peripheral pulses 2+ throughout GI Inspection: Yes normal to inspection Palpation (GI): Soft to palpation, not firm, nontender, no guarding and not rigid Auscultation: normal bowel sounds Neuro General: patient oriented x3 Cranial nerves: Yes CN's II-XII intact bilaterally and Yes Equal, round and reactive pupils present Cognition (Neuro): normal cognition Speech: No Expressive aphasia present and No Receptive aphasia present Gait exam (Neuro): Ataxic gait present Motor exam (neuro): 5/5 motor strength present throughout Sensory Exam: No Sensory deficit (Neuro) NIH Stroke Scale Level of Consciousness: Alert Level of Consciousness Questions: Answers both questions correctly Level of Consciousness Commands: Performs both tasks correctly Best Gaze: Normal Visual: No visual loss Facial Palsy: Normal Motor Arm (Right): No drift Motor Arm (Left): No drift Motor Leg (Right): No drift Motor Leg (Left): No drift Limb Ataxia: Absent (Gait ataxia, without focal limb ataxia ) Sensory: Normal Best Language: No aphasia Dysarthia: Normal Extinction and Inattention: No abnormality Score: 0 Course Course Course Narrative: 67-year-old female with history of hyperlipidemia presents for evaluation of being disoriented. Patient went to right this morning her usual self, she reports feeling well. She went to the hairdresser about 45 minutes prior to arrival. The hairdresser call the patient's sister because the patient was seeming ?altered. ? The patient has no dysarthria, facial asymmetry or weakness. She does have expressive aphasia. She was brought straight back to room 22. Patient had a left ureteral stent removed yesterday Reevaluation(s) Reevaluation #1: Patient is febrile and tachycardic. NIHSS 0, activated by triage provider as code stroke. Taken to CT for CT Head/CT ELVO. Added CT Abdomen/Pelvis w/o Contrast. As patient is febrile, obtained lactic acid and blood cultures x2. Provided Tylenol 975mg PO. Provided 1L IVF. Time: 16:09 Reevaluation #2: Reviewed labs. Noted leukocytosis 16.5k. EKG with ST 126BPM without ischemic changes. CT Head and ELVO unremarkable for acute abnormalities as discussed with radiology attending. At this time, low suspicion for CVA/TIA. Suspect patient is encephalopathic 2/2 to acute infection meeting sepsis criteria. Blood cultures, lactic acid, UA with culture have been ordered. Antibiotics with Zosyn ordered due to suspected source of infection abdominal versus , dose adjusted for CrCl. Time: 16:46 Reevaluation #3: CT Abdomen/Pelvis with evidence of severe right hydronephrosis and right renal cortical thinning, moderate left hydronephrosis with fat stranding surrounding the left renal pelvis and ureter. CXR unremarkable. Urine with evidence of infection. Urology paged for consult, will follow patient during admission. Plan: Admit to hospitalist Condition: Stable Time: 16:57 Medications Administered Discontinued Medications Generic Name Dose Route Start Last Admin Trade Name Freq PRN Reason Stop Dose Admin Acetaminophen 975 mg 06/19/23 16:09 06/19/23 16:40 Acetaminophen 325 Mg Tablet PO 06/19/23 16:10 975 mg ONCE ONE Administration Sodium Chloride 1,000 mls @ 999 mls/hr 06/19/23 16:15 06/19/23 16:41 Ns IV 06/19/23 17:15 999 mls/hr .Q1H1M DONELL Administration Sodium Chloride 1,000 mls @ 999 mls/hr 06/19/23 16:45 06/19/23 17:19 Ns IV 06/19/23 17:45 999 mls/hr .Q1H1M DONELL Administration Piperacillin Sod/Tazobactam 50 mls @ 100 mls/hr 06/19/23 16:47 06/19/23 17:19 Sod 2.25 gm/ Sodium Chloride IV 06/19/23 17:16 100 mls/hr ONCE ONE Administration Medical Decision Making Lab Data 06/19/23 15:58 06/19/23 15:58 Labs: Lab Results 06/19/23 06/19/23 06/19/23 Range/Units 15:55 15:58 16:39 WBC 16.5 H (4.8-10.8) X10*3/uL RBC 5.08 (4.20-5.50) X10*6/uL Hgb 14.2 (12.0-16.0) g/dl Hct 43.2 (37.0-47.0) % MCV 85.0 (80.0-98.0) fL MCH 28.0 (27.0-33.0) pg MCHC 32.9 (31.0-35.0) g/dl RDW 13.3 (11.0-16.0) % Plt Count 210 (160-400) X10*3/uL MPV 11.1 (9.4-12.3) fL Immature Gran % (Auto) 0.6 H (0.0-0.4) % Neut % (Auto) 84.2 H (45-73) % Lymph % (Auto) 8.4 L (20-40) % [place] % (Auto) 6.3 (2-11) % Eos % (Auto) 0.2 (0-4) % Baso % (Auto) 0.3 (0-2) % Lymph # (Auto) 1.4 (1.2-4.9) X10*3/uL [place] # (Auto) 1.0 (0.1-1.2) X10*3/uL Eos # (Auto) 0.0 (0.0-0.4) X10*3/uL Baso # (Auto) 0.1 (0.0-0.2) X10*3/uL Abs Immat Gran (auto) 0.10 H (0.00-0.03) X10*3/uL Absolute Neuts (auto) 13.9 H (2.0-8.3) x10*3/uL Absolute Nucleated RBC 0.000 (0.0-0.012) X10*3/uL Nucleated RBC % (auto) 0.0 (0.0-0.2) /100WBC Hold Purple Top SEE NOTE PT 11.3 (11.1-13.3) SEC INR 0.9 (0.9-1.1) APTT 29.2 (26.0-36.4) SEC Sodium 141 (135-145) mmol/L Potassium 3.8 (3.3-5.1) mmol/L Chloride 102 (96-108) mmol/L Carbon Dioxide 25 (22-29) mmol/L Anion Gap 18 (12-20) BUN 30 H (9-16) mg/dL Creatinine 2.18 H (0.5-1.4) mg/dL Estim Creat Clear Calc 27.6 Estimated GFR 22 POC Glucose 151 H (60-115) mg/dL Random Glucose 150 H (60-115) mg/dL Lactic Acid 1.3 (0.5-2.0) mmol/L Calcium 9.6 (8.4-10.2) mg/dL Total Bilirubin 0.6 (0.0-1.0) mg/dL AST 18 (5-31) U/L ALT 14 (0-31) U/L Alkaline Phosphatase 88 (39-117) U/L Troponin I High Sens 4.0 (<3.5-17.0) ng/L Total Protein 7.8 (6.5-8.0) g/dL Albumin 4.2 (3.5-5.0) g/dL Lipase 51 (8-78) U/L Hold Yellow Top See Note Urine Color Urine Appearance Urine pH (5.0-9.0) Ur Specific [place] (1.005-1.025) Urine Protein (Neg-Trace) mg/dL Urine Glucose (UA) (Negative) mg/dL Urine Ketones (Negative) mg/dL Urine Blood (Negative) Urine Nitrite (Negative) Ur Leukocyte Esterase (Negative) Urine RBC (0-2) /HPF Urine WBC (0-5) /HPF Ur Squamous Epith Cells (0-2) /HPF Urine Bacteria (None Seen) Hyaline Casts (0-2) /LPF Urine Opiates Screen (Not Detect) Urine Fentanyl Screen (Not Detect) Ur Barbiturates Screen (Not Detect) Ur Phencyclidine Scrn (Not Detect) Ur Amphetamines Screen (Not Detect) U Benzodiazepines Scrn (Not Detect) Urine Cocaine Screen (Not Detect) U Marijuana (THC) Screen (Not Detect) Blood Type O Positive Antibody Screen NEGATIVE 06/19/23 Range/Units 16:50 WBC (4.8-10.8) X10*3/uL RBC (4.20-5.50) X10*6/uL Hgb (12.0-16.0) g/dl Hct (37.0-47.0) % MCV (80.0-98.0) fL MCH (27.0-33.0) pg MCHC (31.0-35.0) g/dl RDW (11.0-16.0) % Plt Count (160-400) X10*3/uL MPV (9.4-12.3) fL Immature Gran % (Auto) (0.0-0.4) % Neut % (Auto) (45-73) % Lymph % (Auto) (20-40) % [place] % (Auto) (2-11) % Eos % (Auto) (0-4) % Baso % (Auto) (0-2) % Lymph # (Auto) (1.2-4.9) X10*3/uL [place] # (Auto) (0.1-1.2) X10*3/uL Eos # (Auto) (0.0-0.4) X10*3/uL Baso # (Auto) (0.0-0.2) X10*3/uL Abs Immat Gran (auto) (0.00-0.03) X10*3/uL Absolute Neuts (auto) (2.0-8.3) x10*3/uL Absolute Nucleated RBC (0.0-0.012) X10*3/uL Nucleated RBC % (auto) (0.0-0.2) /100WBC Hold Purple Top PT (11.1-13.3) SEC INR (0.9-1.1) APTT (26.0-36.4) SEC Sodium (135-145) mmol/L Potassium (3.3-5.1) mmol/L Chloride (96-108) mmol/L Carbon Dioxide (22-29) mmol/L Anion Gap (12-20) BUN (9-16) mg/dL Creatinine (0.5-1.4) mg/dL Estim Creat Clear Calc Estimated GFR POC Glucose (60-115) mg/dL Random Glucose (60-115) mg/dL Lactic Acid (0.5-2.0) mmol/L Calcium (8.4-10.2) mg/dL Total Bilirubin (0.0-1.0) mg/dL AST (5-31) U/L ALT (0-31) U/L Alkaline Phosphatase (39-117) U/L Troponin I High Sens (<3.5-17.0) ng/L Total Protein (6.5-8.0) g/dL Albumin (3.5-5.0) g/dL Lipase (8-78) U/L Hold Yellow Top Urine Color Dark Yellow Urine Appearance Turbid Urine pH 5.5 (5.0-9.0) Ur Specific [place] 1.020 (1.005-1.025) Urine Protein 300 (3+) H (Neg-Trace) mg/dL Urine Glucose (UA) Negative (Negative) mg/dL Urine Ketones Trace (Negative) mg/dL Urine Blood Large (3+) H (Negative) Urine Nitrite Positive H (Negative) Ur Leukocyte Esterase Large (3+) H (Negative) Urine RBC 11-20 H (0-2) /HPF Urine WBC >50 H (0-5) /HPF Ur Squamous Epith Cells 11-20 (0-2) /HPF Urine Bacteria 4+ (None Seen) Hyaline Casts 6-10 (0-2) /LPF Urine Opiates Screen Not Detected (Not Detect) Urine Fentanyl Screen Not Detected (Not Detect) Ur Barbiturates Screen Not Detected (Not Detect) Ur Phencyclidine Scrn Not Detected (Not Detect) Ur Amphetamines Screen Not Detected (Not Detect) U Benzodiazepines Scrn Not Detected (Not Detect) Urine Cocaine Screen Not Detected (Not Detect) U Marijuana (THC) Screen Not Detected (Not Detect) Blood Type Antibody Screen Radiology Impression Discussion of test interpretation with radiology: I discussed test interpretation with the radiologist and I have reviewed the radiologist's reading. Radiologist Impression: EXAMINATION: CT angio head neck stroke CLINICAL INFORMATION: Expressive aphasia. COMPARISON: CT scan of the head 06/19/2023. TECHNIQUE: [facility] images were obtained. A CT angiogram of the head and neck was performed in the arterial phase after the intravenous administration of 50 mL Omnipaque 350. Pre and delayed postcontrast images of the head were also obtained. 3D images were processed on an independent workstation under concurrent supervision. Arterial stenoses are measured in accordance with NASCET criteria or similar method if applicable. This CT examination was performed using dose optimization techniques as appropriate, including one or more of the following: Automated exposure control, iterative reconstruction, and adjustment of technique factors (mA and/or kVp) according to patient size (this includes techniques or standardized protocols for targeted exams where dose is matched to indication/reason for exam). Fleischner Society criteria for the followup of incidental pulmonary nodules was implemented if appropriate. Total exam dose-length product 1459 mGy-cm FINDINGS: Head: Delayed postcontrast images reveal no abnormal intracranial mass or enhancement. There is no intracranial mass effect or midline shift. Lateral and third ventricles are normal. No hydrocephalus. English-white matter differentiation is preserved and there is no evidence of acute territorial infarct. The calvarium and skull base are intact. Mastoid air cells and middle ear cavities are well aerated. No active paranasal sinus disease. Of note there is an old healed fracture of the right mandibular condyle which is anteriorly subluxed. CT angiogram neck: Patient motion degrades image quality on this component of the examination. The diagnostic accuracy is therefore limited. Scattered atheromatous calcification involves the aortic arch apex. Origins of the major aortic branches are patent. Common carotid arteries are patent. Partially calcified atheromatous plaque involves both carotid bifurcations. No stenosis of the extracranial internal carotid arteries. The cervical segments of the vertebral arteries are patent. CT angiogram head: There is a shallow 1.4 mm contour abnormality at the origin of the left posterior communicating artery that may represent a small aneurysm or vascular infundibulum. This finding is best visualized on sagittal MIP image 61 of 146 series 9. Intracranial internal carotid arteries are otherwise normal. The intradural vertebral artery segments and basilar artery are normal. Anterior, middle, and posterior cerebral artery complexes are normal. No intracranial large vessel occlusion. The timing of the contrast injection provides adequate opacification of the dural venous sinuses which are patent. Other: Soft tissues of the neck including the thyroid gland are normal. No pathologically enlarged cervical lymph nodes. Lung apices are clear. CT/CT angio head neck stroke IMPRESSION: Patient motion degrades image quality on this component of the examination. The diagnostic accuracy is therefore limited. Partially calcified atheromatous plaque involves both carotid bifurcations. No stenosis of the cervical carotid or vertebral arteries. No intracranial large vessel occlusion. There is a shallow 1.4 mm contour abnormality at the origin of the left posterior communicating artery that may represent a small aneurysm or vascular infundibulum. No evidence of acute territorial infarct or hemorrhage. No abnormal intracranial mass or enhancement. This critical result was discussed with Sera Smith at 4:23 PM on 06/19/2023 and it was ascertained that the content and urgency of the report was understood at the time of direct communication. EXAMINATION: CT HEAD WITHOUT CONTRAST (STROKE PROTOCOL) CLINICAL INFORMATION: Expressive aphasia. COMPARISON: No relevant prior imaging. TECHNIQUE: Contiguous axial imaging was performed from the skull base to vertex without intravenous administration of contrast. This CT examination was performed using dose optimization techniques as appropriate, variously including the following: *Automated exposure control *Adjustment of mA and/or kV according to patient size (this includes techniques or standardized protocols for targeted exams where dose is matched to indication/reason for exam; i.e. extremities or head) *Use of iterative reconstruction technique DLP: 593 mGy-cm FINDINGS: There is no acute intracranial hemorrhage or abnormal extra-axial collection. No intracranial mass effect or midline shift. Lateral and third ventricles are normal. No hydrocephalus. English-white matter differentiation is preserved and there is no evidence of acute territorial infarct. The calvarium and skull base are intact. Mastoid air cells and middle ear cavities are well aerated. No active paranasal sinus disease. Globes and orbits are grossly symmetric. CT/CT head for stroke IMPRESSION: Normal CT scan of the head. EXAMINATION: CT ABDOMEN AND PELVIS WITHOUT CONTRAST CLINICAL INFORMATION: Stent removal yesterday COMPARISON: Previous renal ultrasound April 2023 TECHNIQUE: Multidetector volumetric imaging was performed from the superior aspect of the liver through the pubic symphysis. Sagittal and coronal reformatted images were obtained on the technologist's workstation. This CT examination was performed using dose optimization techniques as appropriate, variously including the following: *Automated exposure control *Adjustment of mA and/or kV according to patient size (this includes techniques or standardized protocols for targeted exams where dose is matched to indication/reason for exam; i.e. extremities or head) *Use of iterative reconstruction technique DLP: 896 mGy-cm FINDINGS: Exam is limited due to motion artifact. LUNG BASES: The visualized lung bases are unremarkable. LIVER, GALLBLADDER, AND BILIARY TREE: The liver is normal in size, shape, and attenuation. No focal hepatic lesion or biliary ductal dilatation is present. The gallbladder is unremarkable with no evidence of radiopaque gallstones, gallbladder wall thickening, or obvious pericholecystic inflammatory changes. PANCREAS: Unremarkable. SPLEEN: Unremarkable. ADRENAL GLANDS: The left adrenal gland has been removed. Right adrenal gland is normal. KIDNEYS AND URETERS: There is severe right hydronephrosis. There is marked right renal cortical thinning suggestive of long-standing obstruction. This is similar to previous ultrasound. There is moderate left hydronephrosis. The left ureter does not appear dilated. There is a small amount of fat stranding surrounding the left renal pelvis and ureter. No stone is seen. BLADDER: Not optimally distended. GASTROINTESTINAL TRACT: Diverticulosis of the colon. The small and large bowel are otherwise unremarkable. The appendix is unremarkable. ABDOMINAL WALL: No significant hernia is appreciated. LYMPH NODES: Normal. VASCULAR: Atherosclerotic disease. No aneurysm. PELVIC VISCERA: Unremarkable. OSSEOUS STRUCTURES: Degenerative changes of the spine. CT/CT abdomen pelvis wo IV con IMPRESSION: Limited exam due to motion artifact. Severe right hydronephrosis and right renal cortical thinning suggestive of long-standing obstruction. This is similar to April 2023 ultrasound. Moderate left hydronephrosis. There is fat stranding seen surrounding the left renal pelvis and ureter. No stone seen. Severe diverticulosis of the colon.
[2023-06-19 16:03] LABS: MANUAL DIFF FLAG NO
[2023-06-19 16:04] LABS: Glucose, Whole Blood 151 mg/dL (60-115)
[2023-06-19 16:09] LABS: Basophils Absolute Auto 0.1 X10*3/uL (0.0-0.2); Basophils Percent Auto 0.3 % (0-2); Eosinophils Percent Auto 0.2 % (0-4); Hematocrit 43.2 % (37.0-47.0); Hemoglobin 14.2 g/dl (12.0-16.0); Imm Gran Pct Auto 0.6 % (0.0-0.4); Lymphocytes Absolute Auto 1.4 X10*3/uL (1.2-4.9); Lymphocytes Percent Auto 8.4 % (20-40); Mean Corpuscular HGB Conc 32.9 g/dl (31.0-35.0); Mean Platelet Volume 11.1 fL (9.4-12.3); Monocytes Percent Auto 6.3 % (2-11); Neutrophils Absolute Auto 13.9 x10*3/uL (2.0-8.3); Neutrophils Percent Auto 84.2 % (45-73); Platelet Count 210 X10*3/uL (160-400); Red Blood Count 5.08 X10*6/uL (4.20-5.50); Red Cell Distribution Width 13.3 % (11.0-16.0); White Blood Count 16.5 X10*3/uL (4.8-10.8)
[2023-06-19 16:23] LABS: Alanine Aminotransferase 14 U/L (0-31); Albumin Level 4.2 g/dL (3.5-5.0); Alkaline Phosphatase 88 U/L (39-117); Anion Gap 18 (12-20); Aspartate Amino Transferase 18 U/L (5-31); Bilirubin Total 0.6 mg/dL (0.0-1.0); Blood Urea Nitrogen 30 mg/dL (9-16); Calcium 9.6 mg/dL (8.4-10.2); Carbon Dioxide 25 mmol/L (22-29); Chloride 102 mmol/L (96-108); Creatinine Clr Calc Pharmacy 27.6; Estimated Glomerular Filt Rate 22; Glucose Random 150 mg/dL (60-115); Lipase 51 U/L (8-78); Potassium 3.8 mmol/L (3.3-5.1); Sodium 141 mmol/L (135-145); Total Protein 7.8 g/dL (6.5-8.0)
[2023-06-19] MEDS: Acetaminophen 325 MG TABLET 975 MG PO (16:40)
[2023-06-19] MEDS: 0.9 % Sodium Chloride 1,000 ML 999 ML IV ×2 (16:41→17:19)
[2023-06-19 16:56] LABS: Lactic Acid 1.3 mmol/L (0.5-2.0)
[2023-06-19 16:56] LABS: Appearance Urine Turbid; Color Urine Dark Yellow; Glucose Urine UA Negative (Negative); Leukocyte Esterase Urine Large (3+) (Negative); Nitrite Urine Positive (Negative); PH 5.5 (5.0-9.0); UMIC TRIGGER UACC YES; Urine Blood Large (3+) (Negative); Urine Ketones Trace mg/dL (Negative); Urine Protein 300 (3+) mg/dL (Neg-Trace)
[2023-06-19 17:03] LABS: Amphetamine Screen Urine Not Detected (Not Detect); Barbiturates, Urine Not Detected (Not Detect); Benzodiazepines Screen Urine Not Detected (Not Detect); Cannabinoid Screen Urine Not Detected (Not Detect); Cocaine Screen Urine Not Detected (Not Detect); Fentanyl, urine Not Detected (Not Detect); Opiate Screen Urine Not Detected (Not Detect); Phencyclidine Screen Urine Not Detected (Not Detect)
[2023-06-19 17:07] LABS: INTERNATIONAL NORM RATIO 0.9 (0.9-1.1); Prothrombin Time 11.3 SEC (11.1-13.3)
[2023-06-19 17:08] LABS: Bacteria Urine 4+ (None Seen); UACC Culture Trigger YES; WBC Urine >50 /HPF (0-5)
[2023-06-19 17:09] LABS: Partial Thromboplastin Time 29.2 SEC (26.0-36.4)
[2023-06-19] MEDS: Piperacillin Sodium/Tazobactam 2.25 GM in 0.9 % Sodium Chloride 50 ML IV (17:19)
[2023-06-19 17:58] LABS: Influenza A PCR NEGATIVE (Negative); Influenza B PCR NEGATIVE (Negative); Resp Syncy Virus RNA Qual PCR NEGATIVE (Negative); SARS COV2 PCR INHOUSE NEGATIVE (Negative)
--- NOTE | 2023-06-19 18:12 | PHA.MEDREC ---
Pharmacy Consult ? Medication Reconciliation Pharmacy has completed the medication reconciliation. Patient reported medications. Luann Mendoza, MarvinD
--- NOTE | 2023-06-19 18:12 | PM.IMHP ---
History of Present Illness Date of Service: 06/19/23 Chief Complaint: ams 67F PMH htn, nephrolithiasis with left ureteral stent removed 06/18/23, hld, presented with ams. Patient was noted to be confused, lethargic, not walking straight, states she felt warm. in ED noted to be septic, ariadne, ct with bilateral hydronephrosis. initially stroke code, CTA head and neck negative for acute stroke. after hydration and antbiotics and improvement of fever, patient mental status close to baseline. 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 Meds Allergies Allergy/AdvReac Type Severity Reaction Status Date / Time No Known Allergies Allergy Unknown Verified 01/28/23 08:34 Home Medications Medication Instructions Recorded Confirmed Last Taken Type chlorthalidone 25 mg tablet 12.5 mg PO QAM 11/13/21 06/19/23 06/19/23 History lisinopril 10 mg tablet 10 mg PO DAILY 11/13/21 06/19/23 06/19/23 History coenzyme Q10 100 mg capsule (Co 100 mg PO DAILY 06/19/23 06/19/23 06/19/23 History Q-10) rosuvastatin 20 mg tablet 20 mg PO BEDTIME 06/19/23 06/19/23 06/18/23 History Physical Exam Vital Signs and Narrative: Vital Signs: Last Vital Signs Temp 100.9 F H 06/19/23 15:51 Pulse 118 H 06/19/23 17:10 Resp 20 06/19/23 17:10 BP 101/51 L 06/19/23 17:10 Pulse Ox 91 L 06/19/23 17:10 O2 Del Method Room Air 06/19/23 17:10 BMI result Body Mass Index 32.8 General: AO X 3, no acute distress Resp: CTA bilateral, no accessory muscles used CVS: S1,S2,RRR GI: soft, non tender, non distended Neuro: motor grossly intact, alert Psych: appropriate affect, appropriate insight Results Labs 06/19/23 15:58 06/19/23 15:58 Labs: Laboratory Results - last 24 hr 06/19/23 06/19/23 06/19/23 15:55 15:58 16:39 MCV 85.0 MCH 28.0 MCHC 32.9 RDW 13.3 Plt Count 210 MPV 11.1 Immature Gran % (Auto) 0.6 H Neut % (Auto) 84.2 H Lymph % (Auto) 8.4 L [place] % (Auto) 6.3 Eos % (Auto) 0.2 Baso % (Auto) 0.3 Lymph # (Auto) 1.4 [place] # (Auto) 1.0 Eos # (Auto) 0.0 Baso # (Auto) 0.1 Abs Immat Gran (auto) 0.10 H Absolute Neuts (auto) 13.9 H Absolute Nucleated RBC 0.000 Nucleated RBC % (auto) 0.0 Hold Purple Top SEE NOTE PT 11.3 INR 0.9 APTT 29.2 Anion Gap 18 Estim Creat Clear Calc 27.6 Estimated GFR 22 POC Glucose 151 H Random Glucose 150 H Lactic Acid 1.3 Calcium 9.6 Total Bilirubin 0.6 AST 18 ALT 14 Alkaline Phosphatase 88 Total Protein 7.8 Albumin 4.2 Lipase 51 Hold Yellow Top See Note Urine Color Urine Appearance Urine pH Ur Specific [place] Urine Protein Urine Glucose (UA) Urine Ketones Urine Blood Urine Nitrite Ur Leukocyte Esterase Urine RBC Urine WBC Ur Squamous Epith Cells Urine Bacteria Hyaline Casts Urine Opiates Screen Urine Fentanyl Screen Ur Barbiturates Screen Ur Phencyclidine Scrn Ur Amphetamines Screen U Benzodiazepines Scrn Urine Cocaine Screen U Marijuana (THC) Screen Influenza Type A (PCR) Influenza Type B (PCR) RSV RNA Qual (PCR) SARS-CoV-2 RNA (RT-PCR) Blood Type O Positive Antibody Screen NEGATIVE 06/19/23 06/19/23 16:50 17:10 MCV MCH MCHC RDW Plt Count MPV Immature Gran % (Auto) Neut % (Auto) Lymph % (Auto) [place] % (Auto) Eos % (Auto) Baso % (Auto) Lymph # (Auto) [place] # (Auto) Eos # (Auto) Baso # (Auto) Abs Immat Gran (auto) Absolute Neuts (auto) Absolute Nucleated RBC Nucleated RBC % (auto) Hold Purple Top PT INR APTT Anion Gap Estim Creat Clear Calc Estimated GFR POC Glucose Random Glucose Lactic Acid Calcium Total Bilirubin AST ALT Alkaline Phosphatase Total Protein Albumin Lipase Hold Yellow Top Urine Color Dark Yellow Urine Appearance Turbid Urine pH 5.5 Ur Specific Woody 1.020 Urine Protein 300 (3+) H Urine Glucose (UA) Negative Urine Ketones Trace Urine Blood Large (3+) H Urine Nitrite Positive H Ur Leukocyte Esterase Large (3+) H Urine RBC 11-20 H Urine WBC >50 H Ur Squamous Epith Cells 11-20 Urine Bacteria 4+ Hyaline Casts 6-10 Urine Opiates Screen Not Detected Urine Fentanyl Screen Not Detected Ur Barbiturates Screen Not Detected Ur Phencyclidine Scrn Not Detected Ur Amphetamines Screen Not Detected U Benzodiazepines Scrn Not Detected Urine Cocaine Screen Not Detected U Marijuana (THC) Screen Not Detected Influenza Type A (PCR) NEGATIVE Influenza Type B (PCR) NEGATIVE RSV RNA Qual (PCR) NEGATIVE SARS-CoV-2 RNA (RT-PCR) NEGATIVE Blood Type Antibody Screen Imaging Radiologist's Impressions: Impressions Head CT 06/19/23 16:06 IMPRESSION: Normal CT scan of the head. Head/Neck CTA 06/19/23 16:24 IMPRESSION: Patient motion degrades image quality on this component of the examination. The diagnostic accuracy is therefore limited. Partially calcified atheromatous plaque involves both carotid bifurcations. No stenosis of the cervical carotid or vertebral arteries. No intracranial large vessel occlusion. There is a shallow 1.4 mm contour abnormality at the origin of the left posterior communicating artery that may represent a small aneurysm or vascular infundibulum. No evidence of acute territorial infarct or hemorrhage. No abnormal intracranial mass or enhancement. This critical result was discussed with Sera Smith at 4:23 PM on 06/19/2023 and it was ascertained that the content and urgency of the report was understood at the time of direct communication. Abdomen/Pelvis CT 06/19/23 16:36 IMPRESSION: Limited exam due to motion artifact. Severe right hydronephrosis and right renal cortical thinning suggestive of long-standing obstruction. This is similar to April 2023 ultrasound. Moderate left hydronephrosis. There is fat stranding seen surrounding the left renal pelvis and ureter. No stone seen. Severe diverticulosis of the colon. Fleischner guidelines were followed. Chest X-Ray 06/19/23 16:54 IMPRESSION: Unremarkable examination. Assessment and Plan (1) Acute UTI: Status: Acute Plan 67F PMH htn, nephrolithiasis with left ureteral stent removed 06/18/23, hld, presented with ams sepsis and acute metabolic encephalopathy due to UTI complicated by bilateral hydronephrosis (right chornic, left subacute) and ARIADNE ivf, rocephin, cultures, eval hold chlorthalidone and lisinpril monitor bmp htn holding bp meds hld statin dvt prophylaxis - hep sq full code patient with sepsis due to uti, at risk for further decompensation, would want cultures and selectivities and defervesence prior to changing to po and discharge, therefore, expected to require atleast 2 midnights inpatient. Quality Stroke Does the patient have a stroke diagnosis?: No VTE Prior VTE?: No VTE Risk Level:: Medical - moderate - high VTE Device Contraindication: Treatment Not Indicated VTE Drug Contraindication: N/A - Med Ordered
--- OUTSIDE RECORDS SUMMARY | 2023-06-19 18:19 | XMS_ITS | Continuity of Care Document ---
Author Name Unknown Organization [facility] Address [address] [facility] [address] [place] [address]- Care Team Providers Care Film Reader Name Role Phone Neal Holly MD Primary Care Physician Encounter 07/24/21 - 07/31/21 [facility] [address], [facility] [address] [place] [address]- Attending Physician: Neal Holly MD Admitting Physician: Neal Holly MD Referring Physician: Neal Holly MD
--- OUTSIDE RECORDS SUMMARY | 2023-06-19 18:19 | XMS_ITS | Continuity of Care Document ---
Author Name Unknown Organization [facility] Address [address] [facility] [address] [place] [id number]- Care Team Providers Care Pool Attendant Name Role Phone Neal Holly MD Primary Care Physician Encounter 03/24/22 - 03/31/22 [facility] [address], [facility] [address] [place] [address] us Attending Physician: Neal Martell MD Admitting Physician: Neal Martell MD Referring Physician: Neal Martell MD Care Team Personnel Name: Neal Holly MD Address: [address] [facility], [address] [place], [place] [address]
--- OUTSIDE RECORDS SUMMARY | 2023-06-19 18:19 | XMS_ITS | Continuity of Care Document ---
Author Name Unknown Organization [facility] ter Address [address] [place] [id number]- Care Team Providers Care Telephone Station Installer Name Role Phone Neal Holly MD Primary Care Physician Encounter [facility] Date(s): 07/25/19 - 08/01/[address] [address]- [facility] Attending Physician: Neal Holly MD
[2023-06-19] MEDS: Lactated Ringers 1,000 ML 80 ML IVCONT (19:46)
[2023-06-19] MEDS: Heparin Sodium,Porcine 5,000 UNIT/ML VIAL 5000 UNIT SUBCUT (19:47)
[2023-06-19] MEDS: Atorvastatin Calcium 40 MG TABLET PO (20:00)
[2023-06-19] MEDS: cefTRIAXone sodium 1 GM in 0.9 % Sodium Chloride 50 ML IV (21:41)
[2023-06-19] MEDS: 0.9 % Sodium Chloride Flush 3 ML SYRINGE IVFLUSH (21:47)
[2023-06-19] MEDS: Acetaminophen 325 MG TABLET 650 MG PO (22:25)
[2023-06-19] MEDS: ondansetron HCL 4 MG/2 ML VIAL IVPUSH (22:25)
--- NOTE | 2023-06-19 23:37 | PC.NURSE ---
06/19/23 2200 Pt's temp-101.9 and pt vomited nothing ordered for either DrTami notified ordered tylenol and zofran both given at 2225.
[2023-06-20] VITALS (10 sets, daily range): BP systolic 92–130; BP diastolic 50–61; PULSE 91–102; RESP 16–18; TEMP 37.3–39.4; O2SAT 93–96
[2023-06-20 06:04] LABS: Hematocrit 39.8 % (37.0-47.0); Hemoglobin 12.8 g/dl (12.0-16.0); Mean Corpuscular HGB Conc 32.2 g/dl (31.0-35.0); Mean Corpuscular Hemoglobin 28.2 pg (27.0-33.0); Mean Corpuscular Volume 87.7 fL (80.0-98.0); Platelet Count 177 X10*3/uL (160-400); Red Blood Count 4.54 X10*6/uL (4.20-5.50); Red Cell Distribution Width 13.6 % (11.0-16.0)
[2023-06-20 06:17] LABS: Anion Gap 17 (12-20); Blood Urea Nitrogen 24 mg/dL (9-16); Calcium 8.5 mg/dL (8.4-10.2); Carbon Dioxide 23 mmol/L (22-29); Chloride 108 mmol/L (96-108); Creatinine Clr Calc Pharmacy 36.3; Estimated Glomerular Filt Rate 31; Glucose Fasting 110 mg/dL (60-99); Magnesium 1.9 mg/dL (1.6-2.6); Potassium 3.9 mmol/L (3.3-5.1); Sodium 144 mmol/L (135-145)
[2023-06-20] MEDS: ondansetron HCL 4 MG/2 ML VIAL IVPUSH (06:33)
[2023-06-20] MEDS: Lactated Ringers 1,000 ML 80 ML IVCONT ×2 (08:42→19:45)
--- NOTE | 2023-06-20 10:05 | P.PNIM_ITS ---
Subjective Subjective Date of Service: 06/20/23 Interval History: mental status imrpved Physical Exam 2 Vital Signs: Vital Signs: Last Vital Signs Temp 99.6 F 06/20/23 08:00 Pulse 102 H 06/20/23 08:00 Resp 18 06/20/23 08:00 BP 107/55 L 06/20/23 08:00 Pulse Ox 95 06/20/23 08:00 O2 Del Method Room Air 06/20/23 08:00 BMI result Body Mass Index 32.8 General: AO X 3, no acute distress Resp: CTA bilateral, no accessory muscles used CVS: S1,S2,RRR GI: soft, non tender, non distended Neuro: motor grossly intact, alert Psych: appropriate affect, appropriate insight Objective Data Active Medications Acetaminophen (Acetaminophen 325 Mg Tablet) 650 mg PO Q6H PRN PRN Reason: Fever Last Admin: 06/19/23 22:25 Dose: 650 mg Documented By: ALBINO Atorvastatin Calcium (Atorvastatin Calcium 40 Mg Tablet) 40 mg PO BEDTIME [facility] Last Admin: 06/19/23 20:00 Dose: 40 mg Documented By: SHAHANA Heparin Sodium (Porcine) (Heparin Sodium,Porcine 5,000 Unit/Ml Vial) 5,000 unit SUBCUT Q12H [facility] Last Admin: 06/20/23 06:10 Dose: Not Given Documented By: ALBINO Non-Admin Reason: ? pre-op Ceftriaxone Sodium 1 gm/ (Sodium Chloride) 50 mls @ 100 mls/hr IV Q24H [facility] Last Infusion: 06/19/23 22:20 Dose: Infused Documented By: ALBINO Lactated Ringer's (Lr) 1,000 mls @ 80 mls/hr IVCONT .[id number] [facility] Last Admin: 06/20/23 08:42 Dose: 80 mls/hr Documented By: LALA Ondansetron HCl (Ondansetron Hcl 4 Mg/2 Ml Vial) 4 mg IVPUSH Q8H PRN PRN Reason: Nausea and Vomiting Last Admin: 06/20/23 06:33 Dose: 4 mg Documented By: ALBINO Sodium Chloride (0.9 % Sodium Chloride Flush 3 Ml Syringe) 3 ml IVFLUSH QSHIFT [facility] Last Admin: 06/20/23 07:26 Dose: Not Given Documented By: LALA Non-Admin Reason: IV Running Labs 06/20/23 05:48 06/20/23 05:48 Labs: Laboratory Results - last 24 hr 06/19/23 06/19/23 06/19/23 15:55 15:58 16:39 MCV 85.0 MCH 28.0 MCHC 32.9 RDW 13.3 Plt Count 210 MPV 11.1 Immature Gran % (Auto) 0.6 H Neut % (Auto) 84.2 H Lymph % (Auto) 8.4 L [place] % (Auto) 6.3 Eos % (Auto) 0.2 Baso % (Auto) 0.3 Lymph # (Auto) 1.4 [place] # (Auto) 1.0 Eos # (Auto) 0.0 Baso # (Auto) 0.1 Abs Immat Gran (auto) 0.10 H Absolute Neuts (auto) 13.9 H Absolute Nucleated RBC 0.000 Nucleated RBC % (auto) 0.0 Hold Purple Top SEE NOTE PT 11.3 INR 0.9 APTT 29.2 Anion Gap 18 Estim Creat Clear Calc 27.6 Estimated GFR 22 POC Glucose 151 H Random Glucose 150 H Fasting Glucose Lactic Acid 1.3 Calcium 9.6 Magnesium Total Bilirubin 0.6 AST 18 ALT 14 Alkaline Phosphatase 88 Total Protein 7.8 Albumin 4.2 Lipase 51 Hold Yellow Top See Note Urine Color Urine Appearance Urine pH Ur Specific [place] Urine Protein Urine Glucose (UA) Urine Ketones Urine Blood Urine Nitrite Ur Leukocyte Esterase Urine RBC Urine WBC Ur Squamous Epith Cells Urine Bacteria Hyaline Casts Urine Opiates Screen Urine Fentanyl Screen Ur Barbiturates Screen Ur Phencyclidine Scrn Ur Amphetamines Screen U Benzodiazepines Scrn Urine Cocaine Screen U Marijuana (THC) Screen Influenza Type A (PCR) Influenza Type B (PCR) RSV RNA Qual (PCR) SARS-CoV-2 RNA (RT-PCR) Blood Type O Positive Antibody Screen NEGATIVE 06/19/23 06/19/23 06/20/23 16:50 17:10 05:48 MCV 87.7 MCH 28.2 MCHC 32.2 RDW 13.6 Plt Count 177 MPV 11.0 Immature Gran % (Auto) Neut % (Auto) Lymph % (Auto) [place] % (Auto) Eos % (Auto) Baso % (Auto) Lymph # (Auto) [place] # (Auto) Eos # (Auto) Baso # (Auto) Abs Immat Gran (auto) Absolute Neuts (auto) Absolute Nucleated RBC 0.000 Nucleated RBC % (auto) 0.0 Hold Purple Top PT INR APTT Anion Gap 17 Estim Creat Clear Calc 36.3 Estimated GFR 31 POC Glucose Random Glucose Fasting Glucose 110 H Lactic Acid Calcium 8.5 D Magnesium 1.9 Total Bilirubin AST ALT Alkaline Phosphatase Total Protein Albumin Lipase Hold Yellow Top Urine Color Dark Yellow Urine Appearance Turbid Urine pH 5.5 Ur Specific [place] 1.020 Urine Protein 300 (3+) H Urine Glucose (UA) Negative Urine Ketones Trace Urine Blood Large (3+) H Urine Nitrite Positive H Ur Leukocyte Esterase Large (3+) H Urine RBC 11-20 H Urine WBC >50 H Ur Squamous Epith Cells 11-20 Urine Bacteria 4+ Hyaline Casts 6-10 Urine Opiates Screen Not Detected Urine Fentanyl Screen Not Detected Ur Barbiturates Screen Not Detected Ur Phencyclidine Scrn Not Detected Ur Amphetamines Screen Not Detected U Benzodiazepines Scrn Not Detected Urine Cocaine Screen Not Detected U Marijuana (THC) Screen Not Detected Influenza Type A (PCR) NEGATIVE Influenza Type B (PCR) NEGATIVE RSV RNA Qual (PCR) NEGATIVE SARS-CoV-2 RNA (RT-PCR) NEGATIVE Blood Type Antibody Screen Assessment and Plan (1) Acute UTI: Status: Acute Plan 67F PMH htn, nephrolithiasis with left ureteral stent removed 06/18/23, hld, presented with ams sepsis and acute metabolic encephalopathy due to UTI complicated by bilateral hydronephrosis (right chornic, left subacute) and ARIADNE ivf, rocephin, cultures, eval holding chlorthalidone and lisinpril monitor bmp renal function and mental status improving htn holding bp meds hld statin dvt prophylaxis - hep sq full code reason for continued hospitalization:awaiting cultures Quality Stroke Does the patient have a stroke diagnosis?: No VTE Prior VTE?: No VTE Risk Level:: Medical - moderate - high VTE Device Contraindication: Treatment Not Indicated VTE Drug Contraindication: N/A - Med Ordered
[2023-06-20] MEDS: Acetaminophen 325 MG TABLET 650 MG PO ×3 (10:55→21:55)
--- NOTE | 2023-06-20 15:54 | PC.NURSE ---
pt complaining of chills. Checked oral temperature 101.7. PRN Tylenol Q6H last given at 1055. Given at 1538. Okayed by Dr Davis.
--- NOTE | 2023-06-20 16:09 | MHC.CM.PN ---
PT REPORTS SHE LIVES ALONE AND IS INDEPENDENT WITH CARE SHE HAS NO DME AND NO SERVICES SHE REPORTS HER DAUGHTER BRINA IS HER HCP, COPY REQUESTED SHE CONFIRMS HER PCP IS LIDA WATSON DCP: HOME NO SERVICES VIA FAMILY TRANSPORT
[2023-06-20] MEDS: Heparin Sodium,Porcine 5,000 UNIT/ML VIAL 5000 UNIT SUBCUT (18:38)
[2023-06-20] MEDS: Atorvastatin Calcium 40 MG TABLET PO (21:23)
[2023-06-20] MEDS: cefTRIAXone sodium 1 GM in 0.9 % Sodium Chloride 50 ML IV (21:23)
--- NOTE | 2023-06-20 21:38 | P.CNUR_ITS ---
History of Present Illness Consult details Consult date: 06/20/23 Narrative: 67F PMH htn, nephrolithiasis with left ureteral stent removed 06/18/23. ED records note the the patient was noted to be confused, lethargic, not walking straight. In ED noted to be septic, sagar, ct with bilateral hydronephrosis. CTA head and neck negative for acute stroke. After hydration and antbiotics and improvement of fever, patient mental status close to baseline. Review of Systems 2 Review of Systems: Yes all other systems are reviewed and are negative Constitutional: Constitutional: Reports no additional constitutional complaints Eyes: Eyes: Reports no additional eye complaints ENT: Reports system reviewed and no additional complaints, except as documented Cardiovascular: Cardiovascular: Denies dyspnea Respiratory: Respiratory: Denies cough and Denies dyspnea Gastrointestinal: Gastrointestinal: Reports no additional gastrointestinal complaints Genitourinary: Genitourinary: Reports no additional female genitourinary complaints Musculoskeletal: Musculoskeletal: Reports no additional musculoskeletal complaints Integumentary/Breasts: Skin/Breast: Denies rash and Denies unusual bruising Neurologic: Reports system reviewed and no additional complaints, except as documented Psychiatric: Psychiatric: Reports no additional psychiatric complaints Endocrine: Endocrine: Reports no additional endocrine complaints Hematologic/Lymphatic: Hematologic/Lymphatic: Reports no additional hematologic/lymphatic complaints Allergic/Immunologic: Allergic/Immunologic: Reports no additional allergic/immunologic complaints [facility] [place] Past Medical History Medical History Hx of pheochromocytoma HLD (hyperlipidemia) HTN (hypertension) Social History Social History Household Members: None Housing: House Do you presently have visiting nurse or other home services: No Alcohol intake: never Patient Tobacco Use Status: Never used Tobacco Advance Directives Date on File: 06/19/23 service: No Current occupational status: employed 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, 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 Meds Allergies Allergy/AdvReac Type Severity Reaction Status Date / Time No Known Allergies Allergy Unknown Verified 01/28/23 08:34 Active Medications: Current Medications Acetaminophen (Acetaminophen 325 Mg Tablet) 650 mg PO Q6H PRN PRN Reason: Fever Last Admin: 06/20/23 15:38 Dose: 650 mg Atorvastatin Calcium (Atorvastatin Calcium 40 Mg Tablet) 40 mg PO BEDTIME DONELL Last Admin: 06/20/23 21:23 Dose: 40 mg Heparin Sodium (Porcine) (Heparin Sodium,Porcine 5,000 Unit/Ml Vial) 5,000 unit SUBCUT Q12H [facility] Last Admin: 06/20/23 18:38 Dose: 5,000 unit Ceftriaxone Sodium 1 gm/ (Sodium Chloride) 50 mls @ 100 mls/hr IV Q24H [facility] Last Admin: 06/20/23 21:23 Dose: 100 mls/hr Lactated Ringer's (Lr) 1,000 mls @ 80 mls/hr IVCONT .[id number] [facility] Last Admin: 06/20/23 19:45 Dose: 80 mls/hr Ondansetron HCl (Ondansetron Hcl 4 Mg/2 Ml Vial) 4 mg IVPUSH Q8H PRN PRN Reason: Nausea and Vomiting Last Admin: 06/20/23 06:33 Dose: 4 mg Sodium Chloride (0.9 % Sodium Chloride Flush 3 Ml Syringe) 3 ml IVFLUSH QSHIFT [facility] Last Admin: 06/20/23 20:19 Dose: Not Given Home Medications Medication Instructions Recorded Confirmed Last Taken Type chlorthalidone 25 mg tablet 12.5 mg PO QAM 11/13/21 06/19/23 06/19/23 History lisinopril 10 mg tablet 10 mg PO DAILY 11/13/21 06/19/23 06/19/23 History coenzyme Q10 100 mg capsule (Co 100 mg PO DAILY 06/19/23 06/19/23 06/19/23 History Q-10) rosuvastatin 20 mg tablet 20 mg PO BEDTIME 06/19/23 06/19/23 06/18/23 History Physical Exam 2 Vital Signs: Vital Signs: Last Vital Signs Temp 99.5 F 06/20/23 19:10 Pulse 91 06/20/23 19:10 Resp 18 06/20/23 19:10 BP 96/50 L 06/20/23 19:10 Pulse Ox 96 06/20/23 19:10 O2 Del Method Room Air 06/20/23 19:10 BMI result Body Mass Index 32.8 Const: General: no acute distress Orientation/consciousness: patient oriented x3 HEENT: Head: Yes normal to inspection, Yes normocephalic and Yes atraumatic Eyes: Conjunctivae: conjunctivae normal Neck: Neck: Yes normal visual inspection and Yes trachea midline Chest: Chest palpation & inspection: normal inspection of the chest Resp: Effort & Inspection: normal respiratory effort Cardio: Rate: regular rate GI: Inspection: Yes normal to inspection Palpation (GI): Soft to palpation Skin: General skin exam: no rashes or lesions noted Neuro: General: patient oriented x3 Psych: Appearance: grossly normal Results Labs 06/22/23 05:59 06/22/23 05:59 Labs: Abnormal lab results 06/20/23 Range/Units 05:48 WBC 20.0 H (4.8-10.8) X10*3/uL BUN 24 H (9-16) mg/dL Creatinine 1.66 H (0.5-1.4) mg/dL Fasting Glucose 110 H (60-99) mg/dL Short CBC 06/20/23 Range/Units 05:48 WBC 20.0 H (4.8-10.8) X10*3/uL Hgb 12.8 (12.0-16.0) g/dl Hct 39.8 (37.0-47.0) % Plt Count 177 (160-400) X10*3/uL BMP 06/20/23 05:48 Sodium 144 Potassium 3.9 Chloride 108 Carbon Dioxide 23 BUN 24 H Creatinine 1.66 H Calcium 8.5 D Urine 06/19/23 Range/Units 16:50 Urine Color Dark Yellow Urine Appearance Turbid Urine pH 5.5 (5.0-9.0) Ur Specific Wood 1.020 (1.005-1.025) Urine Protein 300 (3+) H (Neg-Trace) mg/dL Urine Glucose (UA) Negative (Negative) mg/dL Collected: 06/19/23-UNK Status: RES Req#: [id number] Received: 06/19/23 Source: [facility] Sp Desc: Urine dominguez Subm Dr: Quintin Cabezas Ordered: Urine Culture Procedure Result Verified Site Urine Culture Preliminary 06/20/23-1101 Organism 1 Gram negative reji Quant > 100,000 cfu/mL Imaging Additional studies: Date of Service: 06/19/23 EXAMINATION: CT ABDOMEN AND PELVIS WITHOUT CONTRAST CLINICAL INFORMATION: Stent removal yesterday COMPARISON: Previous renal ultrasound April 2023 TECHNIQUE: Multidetector volumetric imaging was performed from the superior aspect of the liver through the pubic symphysis. Sagittal and coronal reformatted images were obtained on the technologist's workstation. This CT examination was performed using dose optimization techniques as appropriate, variously including the following: *Automated exposure control *Adjustment of mA and/or kV according to patient size (this includes techniques or standardized protocols for targeted exams where dose is matched to indication/reason for exam; i.e. extremities or head) *Use of iterative reconstruction technique DLP: 896 mGy-cm FINDINGS: Exam is limited due to motion artifact. LUNG BASES: The visualized lung bases are unremarkable. LIVER, GALLBLADDER, AND BILIARY TREE: The liver is normal in size, shape, and attenuation. No focal hepatic lesion or biliary ductal dilatation is present. The gallbladder is unremarkable with no evidence of radiopaque gallstones, gallbladder wall thickening, or obvious pericholecystic inflammatory changes. PANCREAS: Unremarkable. SPLEEN: Unremarkable. ADRENAL GLANDS: The left adrenal gland has been removed. Right adrenal gland is normal. KIDNEYS AND URETERS: There is severe right hydronephrosis. There is marked right renal cortical thinning suggestive of long-standing obstruction. This is similar to previous ultrasound. There is moderate left hydronephrosis. The left ureter does not appear dilated. There is a small amount of fat stranding surrounding the left renal pelvis and ureter. No stone is seen. BLADDER: Not optimally distended. GASTROINTESTINAL TRACT: Diverticulosis of the colon. The small and large bowel are otherwise unremarkable. The appendix is unremarkable. ABDOMINAL WALL: No significant hernia is appreciated. LYMPH NODES: Normal. VASCULAR: Atherosclerotic disease. No aneurysm. PELVIC VISCERA: Unremarkable. OSSEOUS STRUCTURES: Degenerative changes of the spine. IMPRESSION: Limited exam due to motion artifact. Severe right hydronephrosis and right renal cortical thinning suggestive of long-standing obstruction. This is similar to April 2023 ultrasound. Moderate left hydronephrosis. There is fat stranding seen surrounding the left renal pelvis and ureter. No stone seen. Severe diverticulosis of the colon. Assessment and Plan (1) Acute UTI: Status: Resolved (2) Hydronephrosis: Status: Acute Plan Patient is followed by [facility] Recent stent removal Urine c/s grm negative reji Pt on IV Abx No surgical intervention planned at this time Procedures Date of Service Date of Service: 07/12/23
[2023-06-21] VITALS (9 sets, daily range): BP systolic 97–139; BP diastolic 51–66; PULSE 80–90; RESP 16–20; TEMP 36.8–38.2; O2SAT 92–95
[2023-06-21] MEDS: Heparin Sodium,Porcine 5,000 UNIT/ML VIAL 5000 UNIT SUBCUT ×2 (06:06→18:02)
[2023-06-21 07:00] LABS: Hematocrit 33.2 % (37.0-47.0); Hemoglobin 10.6 g/dl (12.0-16.0); Mean Corpuscular HGB Conc 31.9 g/dl (31.0-35.0); Mean Corpuscular Volume 87.8 fL (80.0-98.0); Platelet Count 159 X10*3/uL (160-400); Red Blood Count 3.78 X10*6/uL (4.20-5.50); Red Cell Distribution Width 13.8 % (11.0-16.0); White Blood Count 12.7 X10*3/uL (4.8-10.8)
[2023-06-21 07:17] LABS: Anion Gap 15 (12-20); Blood Urea Nitrogen 18 mg/dL (9-16); Calcium 8.1 mg/dL (8.4-10.2); Carbon Dioxide 26 mmol/L (22-29); Chloride 105 mmol/L (96-108); Creatinine Clr Calc Pharmacy 46.3; Estimated Glomerular Filt Rate 41; Glucose Fasting 94 mg/dL (60-99); Potassium 3.6 mmol/L (3.3-5.1); Sodium 142 mmol/L (135-145)
[2023-06-21] MEDS: Acetaminophen 325 MG TABLET 650 MG PO ×2 (07:59→16:11)
[2023-06-21] MEDS: Lactated Ringers 1,000 ML 80 ML IVCONT ×2 (08:00→21:03)
--- NOTE | 2023-06-21 08:56 | HO.PM.IMPN ---
Subjective Subjective Date of Service: 06/21/23 Interval History: overall improved, but had fever last night Physical Exam Vital Signs: Vital Signs: Last Vital Signs Temp 99.7 F 06/21/23 07:39 Pulse 86 06/21/23 07:39 Resp 16 06/21/23 07:39 BP 105/55 L 06/21/23 07:39 Pulse Ox 94 06/21/23 07:39 O2 Del Method Room Air 06/21/23 07:39 BMI result Body Mass Index 32.8 General: AO X 3, no acute distress Resp: CTA bilateral, no accessory muscles used CVS: S1,S2,RRR GI: soft, non tender, non distended Neuro: motor grossly intact, alert Psych: appropriate affect, appropriate insight Objective Data Active Medications Acetaminophen (Acetaminophen 325 Mg Tablet) 650 mg PO Q6H PRN PRN Reason: Fever Last Admin: 06/21/23 07:59 Dose: 650 mg Documented By: LALA Atorvastatin Calcium (Atorvastatin Calcium 40 Mg Tablet) 40 mg PO BEDTIME [facility] Last Admin: 06/20/23 21:23 Dose: 40 mg Documented By: ALBINO Heparin Sodium (Porcine) (Heparin Sodium,Porcine 5,000 Unit/Ml Vial) 5,000 unit SUBCUT Q12H [facility] Last Admin: 06/21/23 06:06 Dose: 5,000 unit Documented By: ALBINO Ceftriaxone Sodium 1 gm/ (Sodium Chloride) 50 mls @ 100 mls/hr IV Q24H [facility] Last Infusion: 06/20/23 21:54 Dose: Infused Documented By: ALBINO Lactated Ringer's (Lr) 1,000 mls @ 80 mls/hr IVCONT .[id number] [facility] Last Admin: 06/21/23 08:00 Dose: 80 mls/hr Documented By: LALA Ondansetron HCl (Ondansetron Hcl 4 Mg/2 Ml Vial) 4 mg IVPUSH Q8H PRN PRN Reason: Nausea and Vomiting Last Admin: 06/20/23 06:33 Dose: 4 mg Documented By: ALBINO Sodium Chloride (0.9 % Sodium Chloride Flush 3 Ml Syringe) 3 ml IVFLUSH QSHIFT [facility] Last Admin: 06/21/23 07:04 Dose: Not Given Documented By: LALA Non-Admin Reason: IV Running Labs 06/21/23 05:45 12/10/23 05:45 Labs: Laboratory Results - last 24 hr 06/21/23 05:45 MCV 87.8 MCH 28.0 MCHC 31.9 RDW 13.8 Plt Count 159 L MPV 11.0 Absolute Nucleated RBC 0.000 Nucleated RBC % (auto) 0.0 Anion Gap 15 Estim Creat Clear Calc 46.3 Estimated GFR 41 Fasting Glucose 94 Calcium 8.1 L Microbiology Microbiology Results: Microbiology 06/19/23 Unknown Urine Culture - Final Urine clean catch - Urine dominguez top Escherichia coli 06/19/23 17:10 Blood Culture - Preliminary Blood - Venous No growth after 24 hours. 06/19/23 16:39 Blood Culture - Preliminary Blood - Venous No growth after 24 hours. Assessment and Plan (1) Acute UTI: Status: Acute Plan 67F PMH htn, nephrolithiasis with left ureteral stent removed 06/18/23, hld, presented with ams sepsis and acute metabolic encephalopathy due to UTI complicated by bilateral hydronephrosis (right chornic, left subacute) and ARIADNE ivf, rocephin, urien culture growing ecoli, gu appreciated - no acute intervention holding chlorthalidone and lisinpril monitor bmp renal function and mental status improving htn holding bp meds hld statin dvt prophylaxis - hep sq full code reason for continued hospitalization:awaiting defervesence Quality Stroke Does the patient have a stroke diagnosis?: No VTE Prior VTE?: No VTE Risk Level:: Medical - moderate - high VTE Device Contraindication: Treatment Not Indicated VTE Drug Contraindication: N/A - Med Ordered
[2023-06-21] MEDS: cefTRIAXone sodium 1 GM in 0.9 % Sodium Chloride 50 ML IV (21:02)
[2023-06-21] MEDS: Atorvastatin Calcium 40 MG TABLET PO (21:02)
[2023-06-22 03:43] VITALS: BP 128/60; PULSE 86; RESP 18; TEMP 36.8; O2SAT 94
[2023-06-22] MEDS: Heparin Sodium,Porcine 5,000 UNIT/ML VIAL 5000 UNIT SUBCUT ×2 (06:17→20:05)
[2023-06-22 06:21] LABS: Hematocrit 31.9 % (37.0-47.0); Hemoglobin 10.5 g/dl (12.0-16.0); Mean Corpuscular HGB Conc 32.9 g/dl (31.0-35.0); Mean Corpuscular Hemoglobin 28.4 pg (27.0-33.0); Mean Corpuscular Volume 86.2 fL (80.0-98.0); Mean Platelet Volume 10.2 fL (9.4-12.3); Platelet Count 165 X10*3/uL (160-400); Red Cell Distribution Width 13.3 % (11.0-16.0); White Blood Count 7.3 X10*3/uL (4.8-10.8)
[2023-06-22 06:24] LABS: Anion Gap 13 (12-20); Carbon Dioxide 24 mmol/L (22-29); Chloride 107 mmol/L (96-108); Potassium 3.4 mmol/L (3.3-5.1); Sodium 141 mmol/L (135-145)
[2023-06-22 06:25] LABS: Blood Urea Nitrogen 13 mg/dL (9-16); Calcium 8.4 mg/dL (8.4-10.2); Creatinine Clr Calc Pharmacy 53.8; Estimated Glomerular Filt Rate 49; Glucose Fasting 94 mg/dL (60-99)
[2023-06-22 07:41] VITALS: BP 139/65; PULSE 77; RESP 18; TEMP 36.4; O2SAT 92
--- NOTE | 2023-06-22 07:48 | P.PNIM_ITS ---
Subjective Subjective Date of Service: 06/22/23 Interval History: imprvoing but still with low grade fever Physical Exam 2 Vital Signs: Vital Signs: Last Vital Signs Temp 97.5 F 06/22/23 07:41 Pulse 77 06/22/23 07:41 Resp 18 06/22/23 07:41 BP 139/65 06/22/23 07:41 Pulse Ox 92 06/22/23 07:41 O2 Del Method Room Air 06/22/23 07:41 BMI result Body Mass Index 32.8 General: AO X 3, no acute distress Resp: CTA bilateral, no accessory muscles used CVS: S1,S2,RRR GI: soft, non tender, non distended Neuro: motor grossly intact, alert Psych: appropriate affect, appropriate insight Objective Data Active Medications Acetaminophen (Acetaminophen 325 Mg Tablet) 650 mg PO Q6H PRN PRN Reason: Fever Last Admin: 06/21/23 16:11 Dose: 650 mg Documented By: LALA Atorvastatin Calcium (Atorvastatin Calcium 40 Mg Tablet) 40 mg PO BEDTIME [facility] Last Admin: 06/21/23 21:02 Dose: 40 mg Documented By: KARINE Heparin Sodium (Porcine) (Heparin Sodium,Porcine 5,000 Unit/Ml Vial) 5,000 unit SUBCUT Q12H [facility] Last Admin: 06/22/23 06:17 Dose: 5,000 unit Documented By: KARINE Ceftriaxone Sodium 1 gm/ (Sodium Chloride) 50 mls @ 100 mls/hr IV Q24H [facility] Last Infusion: 06/21/23 21:46 Dose: Infused Documented By: KARINE Lactated Ringer's (Lr) 1,000 mls @ 80 mls/hr IVCONT .[id number] [facility] Last Admin: 06/21/23 21:03 Dose: 80 mls/hr Documented By: KARINE Ondansetron HCl (Ondansetron Hcl 4 Mg/2 Ml Vial) 4 mg IVPUSH Q8H PRN PRN Reason: Nausea and Vomiting Last Admin: 06/20/23 06:33 Dose: 4 mg Documented By: ALBINO Sodium Chloride (0.9 % Sodium Chloride Flush 3 Ml Syringe) 3 ml IVFLUSH QSHIFT [facility] Last Admin: 06/22/23 00:15 Dose: Not Given Documented By: KARINE Non-Admin Reason: IV Running Labs 06/22/23 05:59 06/22/23 05:59 Labs: Laboratory Results - last 24 hr 06/22/23 05:59 MCV 86.2 MCH 28.4 MCHC 32.9 RDW 13.3 Plt Count 165 MPV 10.2 Absolute Nucleated RBC 0.000 Nucleated RBC % (auto) 0.0 Anion Gap 13 Estim Creat Clear Calc 53.8 Estimated GFR 49 Fasting Glucose 94 Calcium 8.4 Microbiology Microbiology Results: Microbiology 06/19/23 17:10 Blood Culture - Preliminary Blood - Venous No growth after 48 hours. 06/19/23 16:39 Blood Culture - Preliminary Blood - Venous No growth after 48 hours. 06/19/23 Unknown Urine Culture - Final Urine clean catch - Urine dominguez top Escherichia coli Assessment and Plan (1) Acute UTI: Status: Acute Plan 67F PMH htn, nephrolithiasis with left ureteral stent removed 06/18/23, hld, presented with ams sepsis and acute metabolic encephalopathy due to UTI complicated by bilateral hydronephrosis (right chornic, left subacute) and ARIADNE ivf, rocephin, urien culture growing ecoli, gu appreciated - no acute intervention holding chlorthalidone and lisinpril monitor bmp renal function and mental status improving htn holding bp meds hld statin dvt prophylaxis - hep sq full code reason for continued hospitalization:awaiting defervesence Quality Stroke Does the patient have a stroke diagnosis?: No VTE Prior VTE?: No VTE Risk Level:: Medical - moderate - high VTE Device Contraindication: Treatment Not Indicated VTE Drug Contraindication: N/A - Med Ordered
[2023-06-22] MEDS: Lactated Ringers 1,000 ML 80 ML IVCONT (08:59)
[2023-06-22 11:40] VITALS: BP 128/60; PULSE 80; RESP 18; TEMP 37.1; O2SAT 92
[2023-06-22 15:12] VITALS: BP 129/62; PULSE 78; RESP 18; TEMP 37.1; O2SAT 94
--- NOTE | 2023-06-22 15:25 | MHC.CM.PN ---
Per MD rounds discharge is anticipated tomorrow. DP home self care. Family will providing transportation home at discharge.
[2023-06-22] MEDS: 0.9 % Sodium Chloride Flush 3 ML SYRINGE IVFLUSH (16:24)
[2023-06-22 19:55] VITALS: BP 131/77; PULSE 77; RESP 18; TEMP 36.8; O2SAT 94
[2023-06-22] MEDS: Atorvastatin Calcium 40 MG TABLET PO (20:05)
[2023-06-22] MEDS: cefTRIAXone sodium 1 GM in 0.9 % Sodium Chloride 50 ML IV (20:10)
[2023-06-23] VITALS: BP 131/64; PULSE 77; RESP 18; TEMP 36.6; O2SAT 94
[2023-06-23] MEDS: 0.9 % Sodium Chloride Flush 3 ML SYRINGE IVFLUSH (00:48)
[2023-06-23 04:00] VITALS: BP 118/58; PULSE 75; RESP 18; TEMP 36.8; O2SAT 94
[2023-06-23] MEDS: Heparin Sodium,Porcine 5,000 UNIT/ML VIAL 5000 UNIT SUBCUT (06:29)
[2023-06-23 07:40] VITALS: BP 132/73; PULSE 66; RESP 17; TEMP 36.5; O2SAT 93
--- NOTE | 2023-06-23 07:40 | P.DS_ITS ---
DS: Providers Provider Date of Service: 06/23/23 Date of admission: 06/19/23 18:11 Primary care physician: Neal Holly MD Consults: 06/19/23 18:09 Consult to Urology Routine Consulting Provider: Matthew Greenberg Reason for consultation: bilateral hydro, sagar, sepsis, recent left stent removal DS: Diagnosis Discharge Diagnosis (1) Acute UTI: Status: Acute DS: Summary Hospital Course Hospital Course: from initial hpi: 67F PMH htn, nephrolithiasis with left ureteral stent removed 06/18/23, hld, presented with ams. Patient was noted to be confused, lethargic, not walking straight, states she felt warm. in ED noted to be septic, sagar, ct with bilateral hydronephrosis. initially stroke code, CTA head and neck negative for acute stroke. after hydration and antbiotics and improvement of fever, patient mental status close to baseline. hospital course: Patient was admitted for sepsis and acute metabolic encephalopathy due to urinary tract infection complicated by bilateral hydronephrosis which is chronic on the right and subacute on the left. Further complicated by acute kidney injury. Patient was treated with IV fluids, ceftriaxone. Urine culture grew E coli. She was seen by Urology who did not recommend any acute intervention. Her chlorthalidone and lisinopril were held. Creatinine returned to normal. Mental status returned to baseline. Sepsis resolved. Patient will be d ischarged on 5 more days of oral cefuroxime. Her blood pressure medications will continue to be held and BMP should be taken in several days. Blood pressure should continue to be monitored outpatient to decide about restarting chlorthalidone and lisinopril. For hyperlipidemia she was continued on statin. Patient is feeling better will be discharged home. Time Attestation Discharge coordination time: Greater than 30 minutes Quality: Safe Use of Opioids Does Pt have an Active Cancer Diagnosis on the Problem List?: No Quality: Stroke Does the patient have a stroke diagnosis?: No Physical Exam Vital Signs: Vital Signs: Last Vital Signs Temp 98.2 F 06/23/23 04:00 Pulse 75 06/23/23 04:00 Resp 18 06/23/23 04:00 BP 118/58 L 06/23/23 04:00 Pulse Ox 94 06/23/23 04:00 O2 Del Method Room Air 06/23/23 04:00 BMI result Body Mass Index 32.8 General: AO X 3, no acute distress Resp: CTA bilateral, no accessory muscles used CVS: S1,S2,RRR GI: soft, non tender, non distended Neuro: motor grossly intact, alert Psych: appropriate affect, appropriate insight DS: Data Data Completed and Pending Labs on day of discharge: Preliminary micro results at discharge 06/19/23 17:10 Blood Culture - Preliminary Blood - Venous No growth after 48 hours. 06/19/23 16:39 Blood Culture - Preliminary Blood - Venous No growth after 48 hours. Discharge Plan Discharge Anticipated Discharge Date/Time: 06/23/23 07:36 Patient Disposition: Home, Self-Care Discharge Diagnosis: sepsis, uti Referrals: Neal Holly MD [Primary Care Provider] - 1 Week Discharge Medications: New cefuroxime axetil 500 mg tablet 500 mg PO Q12H Qty: 10 0RF Continued coenzyme Q10 [Co Q-10] 100 mg Capsule 100 mg PO DAILY rosuvastatin 20 mg tablet 20 mg PO BEDTIME Held lisinopril 10 mg tablet 10 mg PO DAILY Hold Instructions: Resume on 06/29/23. chlorthalidone 25 mg tablet 12.5 mg PO QAM Hold Instructions: Resume on 06/29/23. Discharge Orders: Discharge Order (Routine); Ordered 06/23/23 Ordered By: Carlos Davis Diet: Advance to usual diet Activity on Discharge: As tolerated Stand Alone Forms: Patient Portal Discharge page Other Ambulatory Orders: Basic Metabolic Panel (Routine) Timeframe: 3 Days Facility: [facility] - Location: Laboratory Ordered By: Carlos Davis Care Plan Goals: recovery Health Concerns: uti Plan of Treatment: 5 more days ceftin, due to low normal bps and acute kidney injury, bp meds have been held, should monitor bp and and get labs in a few days, restart if creatine back to normal and bps elevated Assessment: see above
--- NOTE | 2023-06-23 10:24 | MHC.CM.PN ---
Patient is discharged to home today self care. Patient will arrange for transportation home from a family member.
== END 2023-06-23 11:46 | disposition home or self-care (01) | DRG 720 ==
LOC: HO.ED 17:40 → HO.EDOVER 18:18 → HO.S3 19:34
PROVIDERS: Physician Assistant; Admitting Provider Internal Medicine; Emergency Provider Emergency Medicine; PCP Pediatrics; Visit Provider Internal Medicine
DX: A41.9 Sepsis, unspecified organism (principal); G93.41 Metabolic encephalopathy; N17.9 Acute kidney failure, unspecified; N13.6 Pyonephrosis; I10 Essential (primary) hypertension; E78.5 Hyperlipidemia, unspecified; B96.20 Unspecified Escherichia coli [E. coli] as the cause of diseases classified elsewhere; Z20.822 Contact with and (suspected) exposure to COVID-19; Z79.899 Other long term (current) drug therapy
CPT/HCPCS: 0241U; 36415; 70450; 70496; 70498; 71045; 74176; 80048; 80053; 80307; 81001; 82947; 83605; 83690; 83735; 84484; 85025; 85027; 85610; 85730; 86850; 86900; 86901; 87040; 87086; 87088; 87186; 93005; 99285; J0696; J1644; J2405; J2543; J7120

== ENCOUNTER → 2023-06-19 15:50 | Outpatient (BNV) | payer OTHER, SELFPAY | PROVIDERS: Admitting Provider Internal Medicine; Emergency Provider Emergency Medicine; PCP Pediatrics; Visit Provider Internal Medicine | DX: R00.0 Tachycardia, unspecified (principal); R94.31 Abnormal electrocardiogram [ECG] [EKG] | CPT/HCPCS: 93010 ==

== ENCOUNTER → 2023-06-19 18:11 | Outpatient (BNV) | payer OTHER, SELFPAY | PROVIDERS: Admitting Provider Internal Medicine; Emergency Provider Emergency Medicine; PCP Pediatrics; Visit Provider Internal Medicine | DX: N39.0 Urinary tract infection, site not specified (principal) | CPT/HCPCS: 99223; 99232; 99233; 99239 ==

== ENCOUNTER → 2023-06-19 18:11 | Outpatient (BNV) | payer OTHER, SELFPAY | PROVIDERS: Admitting Provider Internal Medicine; Emergency Provider Emergency Medicine; PCP Pediatrics; Visit Provider Urology | DX: N39.0 Urinary tract infection, site not specified (principal); N13.30 Unspecified hydronephrosis | CPT/HCPCS: 99222 ==

== ENCOUNTER 2023-06-25 07:08 | Outpatient (REF) | payer OTHER, SELFPAY ==
[2023-06-25 08:10] LABS: Anion Gap 14 (12-20); Blood Urea Nitrogen 12 mg/dL (9-16); Calcium 9.2 mg/dL (8.4-10.2); Carbon Dioxide 26 mmol/L (22-29); Chloride 106 mmol/L (96-108); Estimated Glomerular Filt Rate 53; Glucose Random 97 mg/dL (60-115); Potassium 3.5 mmol/L (3.3-5.1); Sodium 142 mmol/L (135-145)
== END 2023-06-25 07:09 | disposition home or self-care (01) ==
LOC: HO.LAB 07:08
PROVIDERS: Visit Provider Internal Medicine
DX: N39.0 Urinary tract infection, site not specified (principal)
CPT/HCPCS: 36415; 80048

== ENCOUNTER → 2023-12-09 13:22 | Outpatient (RCR) | payer OTHER, SELFPAY ==
--- NOTE | 2022-01-24 16:10 | MHC.OT.OEV ---
[address] [phone] F: [phone] Occupational Therapy Evaluation Diagnosis: S/P ORIF right DR fracture Date of Onset: 11/10/21 Date of Surgery: 11/14/21 Attending Provider: Lidia Heredia Prescribed Treatment: OT eval and treat MD Follow Up Appointment: History of Current Condition: Pt reports she tripped with her slippers on at home Surgical repair by Dr Heredia. 1/2 cast x wks, to a wrist brace , began weaning from brace the middle of December, RTW 01/08/22. Brace d/c'd on her last appt with Dr. 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 Moderated difficulty with home making due to weakness and protecting healing repair Sleep: WNL Driving: WNL Vision: Glasses Balance: Pain Assessment Pain Score: 1 Pain Scale Used: Numeric (0 - 10) Pain Location and Description: Right wrist only with trying to lift or any heavy use. Aggravating Factors: Heavy lifting with right Alleviating Factors: Skin and Soft Tissue Assessment Skin and Soft Tissue: Atrophy Comments: Stiff wrist Long thin pink surgical scar Mild forearm ms atrophy Nerve assessment Ulnar Nerve: Median Nerve: Radial Nerve: Comments: Sensory Assessment Temperature: Light Touch: WNL Proprioception: Vibration: Comments: Edema Assessment Upper Extremity: WNL Lower Extremity: Comments: Mild right wrist Dexterity Assessment Dexterity: WNL Comments: Special Tests Comments: AROM(PROM) Strength Cervical Cervical Flexion: Cervical Extension: Cervical Lateral Flexion: Cervical Rotation: Comments: Shoulder Flexion: Extension: Abduction: Internal Rotation: External Rotation: Comments: Flexion: Extension: Abduction: Internal Rotation: External Rotation: Comments: Elbow Flexion: Extension: Pronation: Supination: Comments: Flexion: Extension: Pronation: Supination: Comments: Wrist Flexion: Right 45 deg Left 70 deg Extension: Right 60 deg Left70 deg Ulnar Deviation: Right 25 deg Left 30 deg Radial Deviation: Right 10 deg Left 10 deg Comments: Flexion: Extension: Ulnar Deviation: Radial Deviation: Comments: Thumb Thumb CMC Flexion: Thumb MCP Flexion: Thumb IP Flexion: Radial Abduction: Palmar Abduction: [place] (Kapandji 0-10): Comments: Digits Index MCP: PIP: DIP: Long MCP: PIP: DIP: Ring MCP: PIP: DIP: Small MCP: PIP: DIP: Comments: Gross Grasp: R 25 lb L 45 lb Lateral Pinch: Two-Point Pinch: Three-Jaw Nestor: Comments: Patient Education Primary Language: Macedonian Relocation Specialist Required: No Current Knowledge: Minimal, needs reinforcement Teaching Method: Demonstration Handouts Verbal Education Needs Identified on Evaluation: Exercise How did patient/family demonstrate learning? Patient demonstrates Patient verbalizes Barriers to Learning: None Readiness for Learning: Accepting Who was educated? Patient Comments: Plan of Care Assessment: Pt is a 66 yo female 11 wks s/p right DR gurjit SORIANO now weaned from her wrist brace and making gains in wrist ROM. Today she presents with some impairments in ROM and strength. She states her primary concern in regaining her strength. Her Quick DASH score is 31 pt, with moderate difficulty with homemaking due to limited use of her right dominant hand with heavy tasks STG Duration: 3 wks Short Term Goals: Demo wrist ext to 65 deg Demo wrist flex to 55 deg Right glue maker bone to 35 lb Tolerate lift and carry 5 lb with right hand Demo indep with wrist and hand strengthening Quick DASH to < 20 pts with activity modifications as needed LTG Duration: 3 wks Halfway Goals: Same as above Frequency and Duration: The patient will be seen 2x wk x 2 wks Treatment Plan: Therapeutic Exercise Therapeutic Activity Home Exercise Program Patient Education ADL Training Electronically Signed By: Cindy COY Reviewed/agree with student documentation: N/A Therapist: Please sign and return to therapist, Thank you for your referral.
--- NOTE | 2022-05-02 16:07 | MHC.OT.DC ---
[address] [phone] F: [phone] Occupational Therapy Discharge Note Provider: Lidia Heredia Diagnosis: S/P ORIF right DR fracture Date of Surgery: 11/14/21 Date of Evaluation: 01/24/22 Date of Discharge: Treatments to Date: 4 Cancellations to Date: 0 No Shows to Date: 0 Discharge Status: Discharge Summary: About 12 weeks post-op ORIF of distal radius, good follow through w/ HEP. Tolerated progressive resistive exercises well without pain. Pt then away for about 2 weeks on vacation. Pt has not called for follow up with appointments. Electronically Signed By: Cindy Aguila OT CHT CLT Reviewed/agree with student documentation: N/A Therapist: Please Sign and return to therapist, thank you for your referral.
== END | disposition home or self-care (01) ==
LOC: HO.OT 01-24 14:49
PROVIDERS: PCP Pediatrics; Visit Provider Orthopaedic Surgery
DX: S52.501A Unspecified fracture of the lower end of right radius, initial encounter for closed fracture (principal)
CPT/HCPCS: 97110; 97165